=== PATIENT | female | born 1950 | race Caucasian/White ===

== ENCOUNTER 2018-04-10 09:42 | Emergency (ER) | payer MEDICARE ==
[~2018-04-10] VITALS: Ht 170.2 cm; Wt 70.0 kg
[2018-04-10 09:57] VITALS: BP 130/68
[2018-04-10 10:35] LABS: BASOPHILS # (AUTO) 0.04 x10^3/uL (0-0.1); BASOPHILS % (AUTO) 0 % (0-1); EOSINOPHILS # (AUTO) 0.21 x10^3/uL (0-0.4); EOSINOPHILS % (AUTO) 2 % (1-7); LYMPHOCYTES # (AUTO) 2.14 x10^3/uL (1-3.4); LYMPHOCYTES % (AUTO) 18 % (22-44); MD NO; MEAN CORPUSCULAR HEMOGLOBIN 27.8 pg (27.0-34.8); MEAN CORPUSCULAR HGB CONC 33.4 g/dL (32.4-35.8); MEAN CORPUSCULAR VOLUME 83.4 fL (80-100); MEAN PLATELET VOLUME 7.4 fL (7.4-10.4); MONOCYTES # (AUTO) 0.96 x10^3/uL (0.2-0.8); MONOCYTES % (AUTO) 8 % (2-9); NEUTROPHILS % (AUTO) 73 % (42-75); PLATELET COUNT 355 x10^3/uL (130-400); RED BLOOD COUNT 5.47 x10^6/uL (3.82-5.3)
[2018-04-10] MEDS ORDERED: KETOROLAC 30 MG/1 ML ONE (10:41)
[2018-04-10] MEDS ORDERED: KETOROLAC 30 MG/1 ML IM ONE (11:00)
== END 2018-04-10 12:04 | disposition home or self-care (01) ==
LOC: ED 11:57
DX: M79.671 Pain in right foot (principal); M25.571 Pain in right ankle and joints of right foot; E11.9 Type 2 diabetes mellitus without complications; J44.9 Chronic obstructive pulmonary disease, unspecified; I50.9 Heart failure, unspecified; F17.200 Nicotine dependence, unspecified, uncomplicated; M79.89 Other specified soft tissue disorders; Z95.0 Presence of cardiac pacemaker
CPT/HCPCS: 36415; 73610; 73630; 84550; 85025; 96372; 99285; J1885

== ENCOUNTER 2018-12-06 23:46 | Inpatient (IN) | payer MEDICARE ==
[~2018-12-06] VITALS: Ht 175.3 cm; Wt 62.9 kg
--- NOTE | 2018-12-07 00:09 | NUR ---
PT IN GOWN IN [facility]. AT . PT EDUCATED ON ER PROCESS AND VERBALIZES UNDERSTANDING. CALL LIGHT IS WITHIN REACH AT THIS TIME. 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 VSS. AWAITING ERP AND NEW ORDERS AT THIS TIME.
[2018-12-07] MEDS ORDERED: SODIUM CHLORIDE FLUSH 10ML SYR IVF ONE (00:30)
[2018-12-07 00:34] LABS: BASOPHILS # (AUTO) 0.12 x10^3/uL (0-0.1); BASOPHILS % (AUTO) 1 % (0-1); EOSINOPHILS # (AUTO) 0.22 x10^3/uL (0-0.4); EOSINOPHILS % (AUTO) 2 % (1-7); LYMPHOCYTES # (AUTO) 2.53 x10^3/uL (1-3.4); LYMPHOCYTES % (AUTO) 18 % (22-44); MD NO; MEAN CORPUSCULAR HEMOGLOBIN 28.4 pg (27.0-34.8); MEAN CORPUSCULAR HGB CONC 33.6 g/dL (32.4-35.8); MEAN CORPUSCULAR VOLUME 84.7 fL (80-100); MONOCYTES % (AUTO) 9 % (2-9); NEUTROPHILS # (AUTO) 9.85 x10^3/uL (1.8-6.8); NEUTROPHILS % (AUTO) 71 % (42-75); PLATELET COUNT 328 x10^3/uL (130-400); RED BLOOD COUNT 5.36 x10^6/uL (3.82-5.3); RED CELL DISTRIBUTION WIDTH 18.1 % (9.6-15.2)
--- NOTE | 2018-12-07 00:38 | NUR ---
Called [facility] and requested pacemaker interogation. Rep to come to ED to interogate
--- NOTE | 2018-12-07 00:42 | NUR ---
PT PLACED ON 3L O2 PER N/C FOR DESAT TO 83% ON RA
[2018-12-07 00:44] LABS: INTERNATIONAL NORMALIZED RATIO 0.94 (0.93-1.1); PROTHROMBIN TIME 9.9 Seconds (9.6-11.5)
[2018-12-07 00:45] LABS: ALANINE AMINOTRANSFERASE 29 U/L (12-78); ALBUMIN 3.5 g/dL (3.4-5.0); ANION GAP 6 mmol/L (5-15); CALCIUM 8.9 mg/dL (8.5-10.1); CHLORIDE 96 mmol/L (98-107); CREATININE 1.15 mg/dL (0.55-1.02)
[2018-12-07 00:50] LABS: ALKALINE PHOSPHATASE 82 U/L (45-117); BILIRUBIN,TOTAL 0.2 mg/dL (0.2-1.0); T4 (THYROXINE) 12.4 mcg/dL (4.8-13.9); TOTAL PROTEIN 7.1 g/dL (6.4-8.2); TROPONIN I 0.101 ng/mL (0.000-0.045)
[2018-12-07] MEDS ORDERED: AMIODARONE 900 MG in DEXTROSE 5% 482 ML IV PRN ×2 (01:15→04:30)
[2018-12-07] MEDS ORDERED: AMIODARONE 50 MG/ML, 3ML IVPush ONE (01:30)
[2018-12-07] MEDS ORDERED: FILTER 0.22 MICRON IV ONE (01:30)
[2018-12-07] MEDS ORDERED: ASPIRIN 325 MG TABLET PO ONE (01:30)
[2018-12-07] MEDS ORDERED: AMIODARONE 50 MG/ML, 3ML ONE (01:31)
[2018-12-07] MEDS ORDERED: ASPIRIN 325 MG TABLET ONE (01:37)
--- NOTE | 2018-12-07 01:41 | NUR ---
PT VSS AND UPDATED IN EMR. PT MEDICATED PER MAR. PT EDUCATED ON UPDATED POC AND VERBALIZES UNDERSTANDING.
--- NOTE | 2018-12-07 01:49 | NUR ---
Maki medina in [facility] - 12/07/18 at 0150 by HANNAH REPORT CALLED TO SHALA GREEN FOR ROOM 520-1
--- NOTE | 2018-12-07 01:50 | NUR ---
REPORT CALLED TO SHALA GREEN FOR ROOM 520-1
--- NOTE | 2018-12-07 01:56 | NUR ---
PT AMBULATES TO RESTROOM WITH STEADY GAIT AND STANDBY ASSIST. PT BACK IN [facility] AT THIS TIME AND MEDICATED PER OCT.
[2018-12-07 02:55] VITALS: BP 110/64
[2018-12-07 03:11] VITALS: BP 110/64
[2018-12-07] MEDS ORDERED: CARV12.52 PO (03:11)
[2018-12-07] MEDS ORDERED: DAPA5TAB PO (03:11)
[2018-12-07] MEDS ORDERED: DEXL60CA2 PO (03:11)
[2018-12-07] MEDS ORDERED: SPIR25TA5 PO (03:11)
[2018-12-07] MEDS ORDERED: ONDA4TAB13 SL (03:11)
[2018-12-07] MEDS ORDERED: ASPI81TA45 PO (03:11)
[2018-12-07] MEDS ORDERED: POTA10CA PO (03:11)
[2018-12-07] MEDS ORDERED: LEVO112T4 PO (03:11)
[2018-12-07] MEDS ORDERED: FLUT1BLS3 INH (03:11)
[2018-12-07] MEDS ORDERED: SITA25TA PO (03:11)
[2018-12-07] MEDS ORDERED: METH10TA2 PO (03:11)
[2018-12-07] MEDS ORDERED: FURO20TA3 PO (03:11)
[2018-12-07] MEDS ORDERED: AZEL205.2 NAS (03:11)
[2018-12-07] MEDS ORDERED: LISI5TAB7 PO (03:11)
[2018-12-07] MEDS ORDERED: LACTATED RINGERS 1,000 ML IV SCH (04:30)
[2018-12-07] MEDS ORDERED: morphine SULFATE 10 MG/ML, 1ML IVPush PRN (04:30)
[2018-12-07] MEDS ORDERED: ENALAPRILAT 1.25 MG/ML, 2ML IVPush PRN (04:30)
[2018-12-07] MEDS ORDERED: PROMETHAZINE 25 MG/ML, 1ML IM PRN (04:30)
[2018-12-07] MEDS ORDERED: NITROGLYCERIN 0.4 MG BOTTLE (25 TABS) SL PRN (04:30)
[2018-12-07] MEDS ORDERED: ACETAMINOPHEN 325 MG TABLET PO PRN (04:30)
[2018-12-07] MEDS ORDERED: MAGNESIUM SULFATE 1 GM in SODIUM CHLORIDE 0.9% 50 ML IV ONE (04:30)
[2018-12-07] MEDS ORDERED: DEXTROSE 4 GM TAB.CHEW PO PRN (05:00)
[2018-12-07] MEDS ORDERED: GLUCAGON 1 MG IM PRN (05:00)
[2018-12-07] MEDS ORDERED: DEXTROSE 50%, 50ML SYRINGE IVPush PRN (05:00)
[2018-12-07] MEDS ORDERED: FILTER 0.22 MICRON IV PRN (05:00)
[2018-12-07] MEDS: HEPARIN 5,000 UNITS/ML, 1ML SQ SCH ×3 (05:06→21:18)
[2018-12-07] MEDS: PANTOPROZOLE 40MG TABLET PO SCH (05:07)
[2018-12-07] MEDS: ASPIRIN 325 MG TABLET EC PO SCH (05:07)
[2018-12-07 06:55] VITALS: BP 102/64
[2018-12-07 07:13] LABS: BASOPHILS # (AUTO) 0.04 x10^3/uL (0-0.1); BASOPHILS % (AUTO) 0 % (0-1); EOSINOPHILS # (AUTO) 0.21 x10^3/uL (0-0.4); EOSINOPHILS % (AUTO) 2 % (1-7); LYMPHOCYTES # (AUTO) 2.09 x10^3/uL (1-3.4); LYMPHOCYTES % (AUTO) 19 % (22-44); MD NO; MEAN CORPUSCULAR HEMOGLOBIN 27.9 pg (27.0-34.8); MEAN CORPUSCULAR HGB CONC 32.8 g/dL (32.4-35.8); MEAN CORPUSCULAR VOLUME 85.1 fL (80-100); MONOCYTES # (AUTO) 1.02 x10^3/uL (0.2-0.8); MONOCYTES % (AUTO) 9 % (2-9); NEUTROPHILS # (AUTO) 7.69 x10^3/uL (1.8-6.8); NEUTROPHILS % (AUTO) 70 % (42-75); PLATELET COUNT 288 x10^3/uL (130-400); RED BLOOD COUNT 5.21 x10^6/uL (3.82-5.3); RED CELL DISTRIBUTION WIDTH 17.7 % (9.6-15.2)
[2018-12-07 07:16] LABS: ANION GAP 6 mmol/L (5-15); CHLORIDE 98 mmol/L (98-107)
[2018-12-07 07:22] LABS: CHOL/HDL RATIO 3.6; CHOLESTEROL, TOTAL 189 mg/dL (140-239); CREATININE 0.84 mg/dL (0.55-1.02); FREE T4 (FREE THYROXINE) 1.21 ng/dL (0.76-1.46); HDL CHOL % 28 % (28-40); HDL CHOLESTEROL (DIRECT) 53 mg/dL (40-60); LDL CHOLESTEROL,CALCULATED 98 mg/dL (54-169); LDL/HDL RATIO 1.8 (0.5-3.0); TRIGLYCERIDES 188 mg/dL (50-200); TROPONIN I 0.092 ng/mL (0.000-0.045); VLDL CHOLESTEROL 38 mg/dL (0-25)
[2018-12-07] MEDS ORDERED: LEVOTHYROXINE 112 MCG TABLET PO SCH (07:30)
[2018-12-07] MEDS: INSULIN LISPRO 100 UNITS/ML, PEN SQ-INSULIN SCH ×4 (08:15→21:25)
[2018-12-07 08:32] LABS: HEMOGLOBIN A1C 6.9 % (4.2-6.3)
[2018-12-07] MEDS ORDERED: POLYETHYLENE GLYCOL 17 GM PACKET PO ONE (09:00)
[2018-12-07] MEDS: LEVOTHYROXINE 112 MCG TABLET PO SCH (10:22)
[2018-12-07] MEDS: FUROSEMIDE 20 MG TABLET PO SCH (10:22)
[2018-12-07] MEDS: SPIRONOLACTONE 25 MG TABLET PO SCH ×2 (10:22→21:19)
[2018-12-07] MEDS: POTASSIUM CHLORIDE 10 MEQ TABLET.ER PO SCH (10:22)
[2018-12-07] MEDS: METHADONE 10 MG TABLET PO SCH ×3 (10:22→21:20)
[2018-12-07] MEDS: SODIUM CHLORIDE FLUSH 10ML SYR IVF SCH ×2 (10:23→21:18)
[2018-12-07] MEDS: CARVEDILOL 12.5 MG TABLET PO SCH ×2 (10:23→21:19)
[2018-12-07] MEDS: LISINOPRIL 5 MG TABLET PO SCH (10:24)
[2018-12-07] MEDS: AMIODARONE 200 MG TABLET PO SCH ×2 (10:25→21:19)
[2018-12-07] MEDS ORDERED: ALBUTEROL/IPRATROPIUM 2.5MG/0.5MG, 3 ML ONE (11:07)
[2018-12-07 11:50] LABS: TROPONIN I 0.072 ng/mL (0.000-0.045)
[2018-12-07] MEDS: methylPREDNISolone SOD SUCC 125 MG/2 ML IVPush SCH ×2 (12:26→18:01)
[2018-12-07 13:16] LABS: HCT (SEDRATE) 43.7 % (34.6-47.8)
[2018-12-07 13:18] VITALS: BP 108/68
[2018-12-07 20:05] VITALS: BP 105/63
[2018-12-07] MEDS: ALBUTEROL/IPRATROPIUM 2.5MG/0.5MG, 3 ML NPPB SCH (20:37)
[2018-12-08] MEDS: methylPREDNISolone SOD SUCC 125 MG/2 ML IVPush SCH ×3 (00:05→12:22)
[2018-12-08 01:50] VITALS: BP 127/67
[2018-12-08] MEDS: HEPARIN 5,000 UNITS/ML, 1ML SQ SCH ×2 (05:26→12:52)
[2018-12-08] MEDS: PANTOPROZOLE 40MG TABLET PO SCH (05:27)
[2018-12-08] MEDS: ASPIRIN 325 MG TABLET EC PO SCH (05:27)
[2018-12-08] MEDS: LEVOTHYROXINE 112 MCG TABLET PO SCH (05:30)
[2018-12-08] MEDS: METHADONE 10 MG TABLET PO SCH (08:01)
[2018-12-08] MEDS: SPIRONOLACTONE 25 MG TABLET PO SCH (08:02)
[2018-12-08] MEDS: CARVEDILOL 12.5 MG TABLET PO SCH (08:02)
[2018-12-08] MEDS: FUROSEMIDE 20 MG TABLET PO SCH (08:02)
[2018-12-08] MEDS: POTASSIUM CHLORIDE 10 MEQ TABLET.ER PO SCH (08:02)
[2018-12-08] MEDS: AMIODARONE 200 MG TABLET PO SCH (08:02)
[2018-12-08] MEDS: LISINOPRIL 5 MG TABLET PO SCH (08:02)
[2018-12-08] MEDS: INSULIN LISPRO 100 UNITS/ML, PEN SQ-INSULIN SCH ×2 (08:05→11:35)
[2018-12-08] MEDS: SODIUM CHLORIDE FLUSH 10ML SYR IVF SCH (08:05)
[2018-12-08 08:09] VITALS: BP 124/73
[2018-12-08] MEDS: ALBUTEROL/IPRATROPIUM 2.5MG/0.5MG, 3 ML NPPB SCH (09:00)
[2018-12-08] MEDS ORDERED: AMIO200T42 PO (11:59)
[2018-12-08] MEDS ORDERED: PRED5TAB PO (11:59)
[2018-12-08] MEDS ORDERED: IPRA3AMP30 NPPB (11:59)
[2018-12-08 13:59] VITALS: BP 120/75
== END 2018-12-08 14:25 | disposition home or self-care (01) | DRG 189 ==
LOC: ED 12-07 00:41 → EDIP 12-07 01:20 → 5SO 12-07 02:31 → DCLOUNGE 12-08 14:18
PROVIDERS: ADMIT Family Medicine; ATTEND Family Medicine
PROC: 4B02XTZ Measurement of Cardiac Defibrillator, External Approach (ICD-10-PCS; principal; 2018-12-07)
DX: J96.21 Acute and chronic respiratory failure with hypoxia (principal); I47.2 Ventricular tachycardia; J44.1 Chronic obstructive pulmonary disease with (acute) exacerbation; I42.0 Dilated cardiomyopathy; F17.210 Nicotine dependence, cigarettes, uncomplicated; E11.9 Type 2 diabetes mellitus without complications; E83.42 Hypomagnesemia; I34.0 Nonrheumatic mitral (valve) insufficiency; K59.09 Other constipation; I50.9 Heart failure, unspecified; Z99.81 Dependence on supplemental oxygen; Z95.810 Presence of automatic (implantable) cardiac defibrillator; Z86.711 Personal history of pulmonary embolism; Z91.19 Patient's noncompliance with other medical treatment and regimen
CPT/HCPCS: 36415; 71045; 80048; 80053; 80061; 82962; 83036; 83735; 83880; 84100; 84436; 84439; 84443; 84484; 85025; 85610; 85651; 85730; 86140; 93005; 93306; 94640; 96365; 96375; 99291; G0378; J1644; J3475; J0282; J1815; J2930; J7060; J7120

== ENCOUNTER 2019-01-11 17:48 | Emergency (ER) | payer MEDICARE ==
[~2019-01-11] VITALS: Ht 175.3 cm; Wt 66.4 kg
[~2019-01-11 17:48] MED LIST: AMIO200T42 PO; ASPI81TA45 PO; AZEL205.2 NAS; CARV12.52 PO; DAPA5TAB PO; DEXL60CA2 PO; FLUT1BLS3 INH; FURO20TA3 PO; IPRA3AMP30 NPPB; LEVO112T4 PO; LISI5TAB7 PO; METH10TA2 PO; ONDA4TAB13 SL; POTA10CA PO; PRED5TAB PO; SITA25TA PO; SPIR25TA5 PO
[2019-01-11] MEDS ORDERED: SODIUM CHLORIDE FLUSH 10ML SYR IVF ONE (18:00)
--- NOTE | 2019-01-11 18:35 | NUR ---
PT BP 78/39 C/O FEELING "DIZZY ALL DAY" PT IS ALERT AND FRANCIS W/O DIFFICULTY. DR LOMELI AT BEDSIDE.
[2019-01-11 18:39] LABS: BASOPHILS # (AUTO) 0.05 x10^3/uL (0-0.1); BASOPHILS % (AUTO) 1 % (0-1); EOSINOPHILS # (AUTO) 0.09 x10^3/uL (0-0.4); EOSINOPHILS % (AUTO) 1 % (1-7); LYMPHOCYTES # (AUTO) 1.63 x10^3/uL (1-3.4); LYMPHOCYTES % (AUTO) 18 % (22-44); MD NO; MEAN CORPUSCULAR HEMOGLOBIN 28.6 pg (27.0-34.8); MEAN CORPUSCULAR HGB CONC 32.6 g/dL (32.4-35.8); MEAN CORPUSCULAR VOLUME 87.7 fL (80-100); MONOCYTES # (AUTO) 0.89 x10^3/uL (0.2-0.8); MONOCYTES % (AUTO) 10 % (2-9); NEUTROPHILS # (AUTO) 6.55 x10^3/uL (1.8-6.8); NEUTROPHILS % (AUTO) 71 % (42-75); PLATELET COUNT 410 x10^3/uL (130-400); RED BLOOD COUNT 4.85 x10^6/uL (3.82-5.3); RED CELL DISTRIBUTION WIDTH 17.7 % (9.6-15.2)
[2019-01-11 18:50] LABS: ALANINE AMINOTRANSFERASE 33 U/L (12-78); ALBUMIN 3.5 g/dL (3.4-5.0); ANION GAP 8 mmol/L (5-15); CALCIUM 8.7 mg/dL (8.5-10.1); CHLORIDE 96 mmol/L (98-107); CREATININE 1.19 mg/dL (0.55-1.02)
[2019-01-11 18:52] LABS: ALKALINE PHOSPHATASE 99 U/L (45-117); BILIRUBIN,TOTAL 0.4 mg/dL (0.2-1.0); TOTAL PROTEIN 6.9 g/dL (6.4-8.2)
[2019-01-11] MEDS ORDERED: CLINDAMYCIN PMX 600MG/50ML 50 ML IV ONE (19:00)
[2019-01-11] MEDS ORDERED: SODIUM CHLORIDE 0.9% 1,000ML IVBOLUS ONE (19:00)
--- NOTE | 2019-01-11 19:04 | NUR ---
Pt report from suhail underwood. This rn to assume care of pt. Pt responding to fluid bolus. Approximately 200 ml in so far.
[2019-01-11 19:06] LABS: TROPONIN I < 0.015 ng/mL (0.000-0.045)
[2019-01-11] MEDS ORDERED: CLINDAMYCIN PMX 600MG/50ML 50 ML ONE (19:20)
--- NOTE | 2019-01-11 19:24 | NUR ---
Md at bedside at this time. States to cancel abx and not admin. non-admin per md order.
[2019-01-11] MEDS ORDERED: GABAPENTIN 300 MG CAPSULE ONE (19:27)
[2019-01-11] MEDS ORDERED: GABAPENTIN 300 MG CAPSULE PO ONE (19:30)
[2019-01-11] MEDS ORDERED: ALBUTEROL/IPRATROPIUM 2.5MG/0.5MG, 3 ML NPPB ONE (19:30)
[2019-01-11] MEDS ORDERED: ALBUTEROL/IPRATROPIUM 2.5MG/0.5MG, 3 ML ONE (19:39)
[2019-01-11 19:51] VITALS: BP 106/46
--- NOTE | 2019-01-11 19:56 | NUR ---
Pt road tested per md order. Pt amb w/ steady gait w/ from home walker and maitained spo2.
--- NOTE | 2019-01-12 19:53 | NUR ---
LAB CALLED WITH POSITIVE BLOOD CULTURE X1 AEROBIC GRAM +COCCI IN CLUSTERS.
== END 2019-01-11 20:32 | disposition home or self-care (01) ==
LOC: ED 19:30
DX: M79.671 Pain in right foot (principal); M79.672 Pain in left foot; M79.662 Pain in left lower leg; M79.661 Pain in right lower leg; E86.0 Dehydration; J44.1 Chronic obstructive pulmonary disease with (acute) exacerbation; I10 Essential (primary) hypertension; E11.9 Type 2 diabetes mellitus without complications; F17.200 Nicotine dependence, unspecified, uncomplicated
CPT/HCPCS: 36415; 71045; 80053; 83605; 83880; 84484; 85025; 87040; 93005; 94640; 96360; 99284; J7030; J7512; J7620

== ENCOUNTER 2019-01-15 08:12 | Inpatient (IN) | payer MEDICARE ==
[~2019-01-15] VITALS: Ht 175.3 cm; Wt 62.7 kg
--- NOTE | 2019-01-15 08:52 | NUR ---
TO ROOM FROM LOBBY
--- NOTE | 2019-01-15 08:52 | NUR ---
LAB DRAWING BLOOD IN LOBBY WHEN CALLING TO ROOM PATIENT.
--- NOTE | 2019-01-15 09:05 | NUR ---
PATIENT AMB WITH STEADY GAIT TO ROOM 35 AT THIS TIME, ASSUMED CARE OF PATIENT. PRESENTS TO ED TODAY FOR CALL BACK FOR POSITIVE BLOOD CULTURES, PATIENT SEEN LAST FRIDAY FOR BILAT LOWER EXT SWELLING, NONE NOTED AT THIS TIME. BILAT HAND/FEET ERYTHEMA WITH WOUNDS TO BILAT LOWER FEET NOTED. HX OF RAYNAUDS. REYNA, AWAITING MD ORDERS, CALL LIGHT WITHIN REACH. WARM BLANKET PROVIDED. Addendum: 01/15/19 at 0918 by NICCI HX OF DM.
--- NOTE | 2019-01-15 09:15 | NUR ---
LAB AT BEDSIDE, UNABLE TO GET BOTH SETS OF CULTURES IN LOBBY, ATTEMPTING 2ND BLOOD CULTURE AT THIS TIME. MD AT BEDSIDE, STATES PATIENT WILL NEED TO BE ADMITTED FOR IV ABX. PATIENT STATING "I NEED TO GO HOME AND TAKE CARE OF A FEW THINGS FIRST FOR AN HOUR BEFORE I CAN AND I PROMISE I WILL COME BACK". AWAITING FURTHER ORDERS FROM MD, WILL SPEAK WITH PATIENT REGARDING NEED TO GO HOME/BEING ADMITTED AFTER LAB IS DONE DRAWING CULTURES.
[2019-01-15 10:08] LABS: MEAN CORPUSCULAR HEMOGLOBIN 28.5 pg (27.0-34.8); MEAN CORPUSCULAR HGB CONC 32.2 g/dL (32.4-35.8); MEAN CORPUSCULAR VOLUME 88.5 fL (80-100); MEAN PLATELET VOLUME 7.3 fL (7.4-10.4); PLATELET COUNT 389 x10^3/uL (130-400); RED BLOOD COUNT 5.16 x10^6/uL (3.82-5.3); RED CELL DISTRIBUTION WIDTH 18.2 % (9.6-15.2)
[2019-01-15 10:17] LABS: ALANINE AMINOTRANSFERASE 45 U/L (12-78); ALBUMIN 3.7 g/dL (3.4-5.0); ANION GAP 6 mmol/L (5-15); CALCIUM 9.1 mg/dL (8.5-10.1); CHLORIDE 96 mmol/L (98-107); CREATININE 0.96 mg/dL (0.55-1.02)
[2019-01-15 10:19] LABS: ALKALINE PHOSPHATASE 94 U/L (45-117); BILIRUBIN,TOTAL 0.3 mg/dL (0.2-1.0); TOTAL PROTEIN 7.4 g/dL (6.4-8.2)
[2019-01-15 10:39] LABS: BASOPHILS # (AUTO) 0.04 x10^3/uL (0-0.1); BASOPHILS % (AUTO) 0 % (0-1); EOSINOPHILS # (AUTO) 0.05 x10^3/uL (0-0.4); EOSINOPHILS % (AUTO) 0 % (1-7); LYMPHOCYTES % (AUTO) 23 % (22-44); MD SCAN; MONOCYTES # (AUTO) 1.56 x10^3/uL (0.2-0.8); MONOCYTES % (AUTO) 13 % (2-9); NEUTROPHILS # (AUTO) 7.59 x10^3/uL (1.8-6.8); NEUTROPHILS % (AUTO) 63 % (42-75)
--- NOTE | 2019-01-15 10:45 | NUR ---
LAB AT BEDSIDE FOR LACTIC, VS UPDATED IN CHART. PATIENT SITTING IN [facility].
--- NOTE | 2019-01-15 11:21 | NUR ---
Maki medina in [facility] - 01/15/19 at 1207 by NICCI LACTIC PENDING.
--- NOTE | 2019-01-15 11:21 | NUR ---
Maki medina in [facility] - 01/15/19 at 1121 by DARBY LACTIC PENDING.
[2019-01-15] MEDS ORDERED: CEFTRIAXONE PMX 1GM/50ML 50 ML ONE (12:28)
[2019-01-15] MEDS ORDERED: SODIUM CHLORIDE FLUSH 10ML SYR IVF PRN (12:30)
[2019-01-15] MEDS ORDERED: CEFTRIAXONE PMX 1GM/50ML 50 ML IVPB ONE (12:30)
--- NOTE | 2019-01-15 13:01 | NUR ---
REPORT TO NORMA ELENA.
--- NOTE | 2019-01-15 13:14 | NUR ---
PATIENT TRANSFERRED/ADMITTED TO HOSPITAL BED.
[2019-01-15 13:53] VITALS: BP 100/59
[2019-01-15] MEDS ORDERED: ONDANSETRON 2MG/ML, 2ML IVPush PRN (14:00)
[2019-01-15] MEDS ORDERED: LABETALOL 5MG/ML, 20ML IVPush PRN (14:00)
[2019-01-15] MEDS ORDERED: ONDANSETRON ODT 4 MG PO PRN (14:00)
[2019-01-15] MEDS ORDERED: VANCOMYCIN PER PHARMACY MC PRN (14:00)
[2019-01-15] MEDS ORDERED: POLYETHYLENE GLYCOL 17 GM PACKET PO PRN (14:00)
[2019-01-15] MEDS ORDERED: PHARMACOKINETIC MONITORING MC PRN (14:30)
[2019-01-15] MEDS ORDERED: PHARMACOKINETIC CONSULTATION MC ONE (14:30)
[2019-01-15 14:41] LABS: FREE T4 (FREE THYROXINE) 1.51 ng/dL (0.76-1.46)
[2019-01-15 15:45] LABS: HCT (SEDRATE) 43.2 % (34.6-47.8)
[2019-01-15] MEDS ORDERED: OMNIPAQUE 350 MG/ML, 100ML BOTTLE ONE (16:15)
[2019-01-15] MEDS: ENOXAPARIN 40 MG/0.4 ML SQ SCH (16:53)
[2019-01-15] MEDS: VANCOMYCIN 1,400 MG in SODIUM CHLORIDE 0.9% 250 ML IV SCH (16:53)
[2019-01-15] MEDS ORDERED: DEXTROSE 4 GM TAB.CHEW PO PRN (17:30)
[2019-01-15] MEDS ORDERED: GLUCAGON 1 MG IM PRN (17:30)
[2019-01-15] MEDS ORDERED: DEXTROSE 50%, 50ML SYRINGE IVPush PRN (17:30)
[2019-01-15 17:52] LABS: HEMOGLOBIN A1C 7.6 % (4.2-6.3)
[2019-01-15 18:51] VITALS: BP 120/67
[2019-01-15] MEDS: INSULIN LISPRO 100 UNITS/ML, PEN SQ-INSULIN SCH (21:00)
[2019-01-15] MEDS: ALBUTEROL/IPRATROPIUM 2.5MG/0.5MG, 3 ML NPPB SCH (21:00)
[2019-01-15] MEDS: AZELASTINE HCL NAS SCH (21:00)
[2019-01-15] MEDS ORDERED: AMIODARONE 200 MG TABLET PO SCH (21:00)
[2019-01-15] MEDS: SODIUM CHLORIDE FLUSH 10ML SYR IVF SCH (21:00)
[2019-01-15] MEDS: CARVEDILOL 12.5 MG TABLET PO SCH (21:10)
[2019-01-15] MEDS: SPIRONOLACTONE 25 MG TABLET PO SCH (21:10)
[2019-01-15] MEDS: METHADONE 10 MG TABLET PO SCH (21:10)
[2019-01-15] MEDS: AMIODARONE 200 MG TABLET PO SCH (21:11)
[2019-01-16 00:34] VITALS: BP 90/50
[2019-01-16 05:31] LABS: BASOPHILS # (AUTO) 0.04 x10^3/uL (0-0.1); BASOPHILS % (AUTO) 1 % (0-1); EOSINOPHILS # (AUTO) 0.08 x10^3/uL (0-0.4); EOSINOPHILS % (AUTO) 1 % (1-7); LYMPHOCYTES # (AUTO) 2.13 x10^3/uL (1-3.4); LYMPHOCYTES % (AUTO) 26 % (22-44); MD NO; MEAN CORPUSCULAR HEMOGLOBIN 28.1 pg (27.0-34.8); MEAN CORPUSCULAR HGB CONC 31.9 g/dL (32.4-35.8); MEAN CORPUSCULAR VOLUME 88.1 fL (80-100); MONOCYTES # (AUTO) 1.01 x10^3/uL (0.2-0.8); MONOCYTES % (AUTO) 12 % (2-9); NEUTROPHILS # (AUTO) 5.01 x10^3/uL (1.8-6.8); NEUTROPHILS % (AUTO) 61 % (42-75); PLATELET COUNT 362 x10^3/uL (130-400); RED BLOOD COUNT 5.03 x10^6/uL (3.82-5.3); RED CELL DISTRIBUTION WIDTH 17.8 % (9.6-15.2)
[2019-01-16 05:38] LABS: ALBUMIN 3.3 g/dL (3.4-5.0); ANION GAP 4 mmol/L (5-15); CALCIUM 8.8 mg/dL (8.5-10.1); CHLORIDE 98 mmol/L (98-107)
[2019-01-16 05:52] LABS: ALANINE AMINOTRANSFERASE 38 U/L (12-78); ALKALINE PHOSPHATASE 91 U/L (45-117); BILIRUBIN,TOTAL 0.7 mg/dL (0.2-1.0); CREATININE 0.85 mg/dL (0.55-1.02); TOTAL PROTEIN 6.8 g/dL (6.4-8.2)
[2019-01-16] MEDS: ALBUTEROL/IPRATROPIUM 2.5MG/0.5MG, 3 ML NPPB SCH (06:00)
[2019-01-16] MEDS: LEVOTHYROXINE 112 MCG TABLET PO SCH (06:37)
[2019-01-16 07:12] VITALS: BP 101/59
[2019-01-16] MEDS: INSULIN LISPRO 100 UNITS/ML, PEN SQ-INSULIN SCH ×4 (08:17→21:49)
[2019-01-16] MEDS: BUDESONIDE 0.5 MG/2 ML INHA INH SCH ×2 (09:00→19:51)
[2019-01-16] MEDS: Fluticasone/Umeclidin/Vilanter (Trelegy Ellipta 100-62.5-25 INH SCH (09:44)
[2019-01-16] MEDS: AZELASTINE HCL NAS SCH ×2 (09:45→21:00)
[2019-01-16] MEDS: SODIUM CHLORIDE FLUSH 10ML SYR IVF SCH ×2 (09:45→21:00)
[2019-01-16] MEDS: AMIODARONE 200 MG TABLET PO SCH ×3 (09:46→21:00)
[2019-01-16] MEDS: METHADONE 10 MG TABLET PO SCH ×3 (09:47→22:04)
[2019-01-16] MEDS: SENNA/DOCUSATE TABLET PO SCH (09:47)
[2019-01-16] MEDS: ASPIRIN 81 MG TABLET EC PO SCH (09:47)
[2019-01-16] MEDS: CARVEDILOL 12.5 MG TABLET PO SCH ×3 (09:47→21:00)
[2019-01-16] MEDS: LISINOPRIL 5 MG TABLET PO SCH (09:47)
[2019-01-16] MEDS: FUROSEMIDE 20 MG TABLET PO SCH (09:49)
[2019-01-16] MEDS: SPIRONOLACTONE 25 MG TABLET PO SCH ×3 (09:50→21:00)
[2019-01-16] MEDS ORDERED: ALBUTEROL/IPRATROPIUM 2.5MG/0.5MG, 3 ML NPPB PRN (10:30)
[2019-01-16 12:43] VITALS: BP 90/51
[2019-01-16] MEDS: CEFTRIAXONE PMX 1GM/50ML 50 ML IV SCH (14:07)
[2019-01-16] MEDS: ENOXAPARIN 40 MG/0.4 ML SQ SCH (14:07)
[2019-01-16] MEDS: VANCOMYCIN 1,400 MG in SODIUM CHLORIDE 0.9% 250 ML IV SCH (16:20)
[2019-01-16 18:44] VITALS: BP 91/53
[2019-01-16 22:00] VITALS: BP 113/65
[2019-01-17 02:47] VITALS: BP 91/57
[2019-01-17 04:46] LABS: BASOPHILS # (AUTO) 0.05 x10^3/uL (0-0.1); BASOPHILS % (AUTO) 1 % (0-1); EOSINOPHILS # (AUTO) 0.11 x10^3/uL (0-0.4); EOSINOPHILS % (AUTO) 1 % (1-7); LYMPHOCYTES # (AUTO) 1.97 x10^3/uL (1-3.4); LYMPHOCYTES % (AUTO) 24 % (22-44); MD NO; MEAN CORPUSCULAR HEMOGLOBIN 28.4 pg (27.0-34.8); MEAN CORPUSCULAR HGB CONC 32.4 g/dL (32.4-35.8); MEAN CORPUSCULAR VOLUME 87.7 fL (80-100); MEAN PLATELET VOLUME 7.1 fL (7.4-10.4); MONOCYTES # (AUTO) 0.92 x10^3/uL (0.2-0.8); MONOCYTES % (AUTO) 11 % (2-9); NEUTROPHILS % (AUTO) 63 % (42-75); PLATELET COUNT 333 x10^3/uL (130-400)
[2019-01-17 04:58] LABS: ALANINE AMINOTRANSFERASE 35 U/L (12-78); ALBUMIN 3.1 g/dL (3.4-5.0); ANION GAP 5 mmol/L (5-15); CALCIUM 8.9 mg/dL (8.5-10.1); CHLORIDE 100 mmol/L (98-107); CREATININE 0.76 mg/dL (0.55-1.02)
[2019-01-17 05:00] LABS: ALKALINE PHOSPHATASE 92 U/L (45-117); BILIRUBIN,TOTAL 0.3 mg/dL (0.2-1.0); TOTAL PROTEIN 6.6 g/dL (6.4-8.2)
[2019-01-17] MEDS: LEVOTHYROXINE 112 MCG TABLET PO SCH (06:13)
[2019-01-17] MEDS: INSULIN LISPRO 100 UNITS/ML, PEN SQ-INSULIN SCH ×4 (07:00→20:25)
[2019-01-17] MEDS: FUROSEMIDE 20 MG TABLET PO SCH (09:00)
[2019-01-17] MEDS: CARVEDILOL 12.5 MG TABLET PO SCH ×3 (09:00→22:20)
[2019-01-17] MEDS: AZELASTINE HCL NAS SCH ×2 (09:00→20:30)
[2019-01-17] MEDS: Fluticasone/Umeclidin/Vilanter (Trelegy Ellipta 100-62.5-25 INH SCH (09:00)
[2019-01-17] MEDS: SPIRONOLACTONE 25 MG TABLET PO SCH ×2 (09:00→20:29)
[2019-01-17 09:36] VITALS: BP 90/56
[2019-01-17] MEDS: ASPIRIN 81 MG TABLET EC PO SCH (09:53)
[2019-01-17] MEDS: SENNA/DOCUSATE TABLET PO SCH (09:53)
[2019-01-17] MEDS: LISINOPRIL 5 MG TABLET PO SCH (09:54)
[2019-01-17] MEDS: AMIODARONE 200 MG TABLET PO SCH ×2 (09:54→20:29)
[2019-01-17] MEDS: METHADONE 10 MG TABLET PO SCH ×3 (09:54→20:29)
[2019-01-17] MEDS: SODIUM CHLORIDE FLUSH 10ML SYR IVF SCH ×2 (09:54→20:30)
[2019-01-17] MEDS: BUDESONIDE 0.5 MG/2 ML INHA INH SCH ×2 (10:20→21:00)
[2019-01-17] MEDS: ENOXAPARIN 40 MG/0.4 ML SQ SCH (14:39)
[2019-01-17] MEDS: CEFTRIAXONE PMX 1GM/50ML 50 ML IV SCH (14:39)
[2019-01-17 15:53] VITALS: BP 95/60
[2019-01-17] MEDS: VANCOMYCIN 1,400 MG in SODIUM CHLORIDE 0.9% 250 ML IV SCH (16:15)
[2019-01-17 18:59] VITALS: BP 109/68
[2019-01-17 22:19] VITALS: BP 103/55
[2019-01-17 22:20] VITALS: BP 121/71
[2019-01-18 01:02] VITALS: BP 90/53
[2019-01-18] MEDS: LEVOTHYROXINE 112 MCG TABLET PO SCH (06:51)
[2019-01-18] MEDS: BUDESONIDE 0.5 MG/2 ML INHA INH SCH ×2 (07:08→20:19)
[2019-01-18 07:55] VITALS: BP 93/56
[2019-01-18] MEDS: INSULIN LISPRO 100 UNITS/ML, PEN SQ-INSULIN SCH ×4 (08:13→21:00)
[2019-01-18 09:54] LABS: BASOPHILS # (AUTO) 0.06 x10^3/uL (0-0.1); BASOPHILS % (AUTO) 1 % (0-1); EOSINOPHILS # (AUTO) 0.12 x10^3/uL (0-0.4); EOSINOPHILS % (AUTO) 1 % (1-7); LYMPHOCYTES # (AUTO) 1.74 x10^3/uL (1-3.4); LYMPHOCYTES % (AUTO) 20 % (22-44); MD NO; MEAN CORPUSCULAR HEMOGLOBIN 28.5 pg (27.0-34.8); MEAN CORPUSCULAR HGB CONC 32.4 g/dL (32.4-35.8); MEAN CORPUSCULAR VOLUME 88.2 fL (80-100); MEAN PLATELET VOLUME 7.1 fL (7.4-10.4); MONOCYTES # (AUTO) 0.88 x10^3/uL (0.2-0.8); MONOCYTES % (AUTO) 10 % (2-9); NEUTROPHILS # (AUTO) 6.01 x10^3/uL (1.8-6.8); NEUTROPHILS % (AUTO) 68 % (42-75); PLATELET COUNT 357 x10^3/uL (130-400); RED BLOOD COUNT 4.88 x10^6/uL (3.82-5.3)
[2019-01-18 10:05] LABS: ALBUMIN 3.2 g/dL (3.4-5.0); ANION GAP 6 mmol/L (5-15); CALCIUM 8.9 mg/dL (8.5-10.1); CHLORIDE 101 mmol/L (98-107)
[2019-01-18 10:08] LABS: ALANINE AMINOTRANSFERASE 32 U/L (12-78); ALKALINE PHOSPHATASE 93 U/L (45-117); BILIRUBIN,TOTAL 0.4 mg/dL (0.2-1.0); CREATININE 0.83 mg/dL (0.55-1.02); TOTAL PROTEIN 6.8 g/dL (6.4-8.2)
[2019-01-18 10:27] VITALS: BP 120/69
[2019-01-18] MEDS: SENNA/DOCUSATE TABLET PO SCH (10:47)
[2019-01-18] MEDS: METHADONE 10 MG TABLET PO SCH ×3 (10:47→21:09)
[2019-01-18] MEDS: LISINOPRIL 5 MG TABLET PO SCH (10:47)
[2019-01-18] MEDS: SODIUM CHLORIDE FLUSH 10ML SYR IVF SCH ×2 (10:48→21:07)
[2019-01-18] MEDS: FUROSEMIDE 20 MG TABLET PO SCH (10:48)
[2019-01-18] MEDS: CARVEDILOL 12.5 MG TABLET PO SCH ×3 (10:48→21:08)
[2019-01-18] MEDS: AMIODARONE 200 MG TABLET PO SCH ×2 (10:48→21:08)
[2019-01-18] MEDS: ASPIRIN 81 MG TABLET EC PO SCH (10:48)
[2019-01-18] MEDS: SPIRONOLACTONE 25 MG TABLET PO SCH ×2 (10:50→21:09)
[2019-01-18] MEDS: AZELASTINE HCL NAS SCH ×2 (10:50→21:00)
[2019-01-18] MEDS: Fluticasone/Umeclidin/Vilanter (Trelegy Ellipta 100-62.5-25 INH SCH (10:50)
[2019-01-18 14:40] VITALS: BP 92/56
[2019-01-18] MEDS: ENOXAPARIN 40 MG/0.4 ML SQ SCH (14:54)
[2019-01-18] MEDS: CEFTRIAXONE PMX 1GM/50ML 50 ML IV SCH (14:54)
[2019-01-18] MEDS: VANCOMYCIN 1,400 MG in SODIUM CHLORIDE 0.9% 250 ML IV SCH (16:48)
[2019-01-18 18:39] VITALS: BP 92/57
[2019-01-18] MEDS: NICOTINE 7 MG/24 HR PATCH.TD24 TD SCH (23:23)
[2019-01-19 01:15] VITALS: BP 107/65
[2019-01-19] MEDS: LEVOTHYROXINE 112 MCG TABLET PO SCH (05:51)
[2019-01-19 06:02] LABS: BASOPHILS # (AUTO) 0.03 x10^3/uL (0-0.1); BASOPHILS % (AUTO) 0 % (0-1); EOSINOPHILS # (AUTO) 0.12 x10^3/uL (0-0.4); EOSINOPHILS % (AUTO) 1 % (1-7); LYMPHOCYTES # (AUTO) 2.07 x10^3/uL (1-3.4); LYMPHOCYTES % (AUTO) 23 % (22-44); MD NO; MEAN CORPUSCULAR HEMOGLOBIN 28.6 pg (27.0-34.8); MEAN CORPUSCULAR HGB CONC 32.4 g/dL (32.4-35.8); MEAN CORPUSCULAR VOLUME 88.4 fL (80-100); MEAN PLATELET VOLUME 7.3 fL (7.4-10.4); MONOCYTES # (AUTO) 1.09 x10^3/uL (0.2-0.8); MONOCYTES % (AUTO) 12 % (2-9); NEUTROPHILS # (AUTO) 5.56 x10^3/uL (1.8-6.8); NEUTROPHILS % (AUTO) 63 % (42-75); PLATELET COUNT 338 x10^3/uL (130-400); RED BLOOD COUNT 4.85 x10^6/uL (3.82-5.3); RED CELL DISTRIBUTION WIDTH 17.8 % (9.6-15.2)
[2019-01-19 06:04] LABS: ALBUMIN 3.3 g/dL (3.4-5.0); ANION GAP 6 mmol/L (5-15); CALCIUM 9.1 mg/dL (8.5-10.1); CHLORIDE 99 mmol/L (98-107)
[2019-01-19 06:11] LABS: ALANINE AMINOTRANSFERASE 31 U/L (12-78); ALKALINE PHOSPHATASE 89 U/L (45-117); BILIRUBIN,TOTAL 0.4 mg/dL (0.2-1.0)
[2019-01-19] MEDS: INSULIN LISPRO 100 UNITS/ML, PEN SQ-INSULIN SCH ×4 (07:08→22:03)
[2019-01-19 07:19] VITALS: BP 100/65
[2019-01-19] MEDS: BUDESONIDE 0.5 MG/2 ML INHA INH SCH ×2 (08:29→20:50)
[2019-01-19] MEDS: Fluticasone/Umeclidin/Vilanter (Trelegy Ellipta 100-62.5-25 INH SCH (09:19)
[2019-01-19] MEDS: AZELASTINE HCL NAS SCH ×2 (09:20→22:04)
[2019-01-19] MEDS: METHADONE 10 MG TABLET PO SCH ×3 (09:20→21:59)
[2019-01-19 10:28] VITALS: BP 119/66
[2019-01-19] MEDS: SODIUM CHLORIDE FLUSH 10ML SYR IVF SCH ×2 (10:30→22:03)
[2019-01-19] MEDS: AMIODARONE 200 MG TABLET PO SCH ×2 (10:31→21:59)
[2019-01-19] MEDS: FUROSEMIDE 20 MG TABLET PO SCH (10:31)
[2019-01-19] MEDS: SENNA/DOCUSATE TABLET PO SCH (10:31)
[2019-01-19] MEDS: ASPIRIN 81 MG TABLET EC PO SCH (10:31)
[2019-01-19] MEDS: SPIRONOLACTONE 25 MG TABLET PO SCH ×2 (10:31→21:59)
[2019-01-19] MEDS: CARVEDILOL 12.5 MG TABLET PO SCH ×2 (10:31→22:04)
[2019-01-19] MEDS: LISINOPRIL 5 MG TABLET PO SCH (10:31)
[2019-01-19 14:04] VITALS: BP 93/52
[2019-01-19] MEDS: ENOXAPARIN 40 MG/0.4 ML SQ SCH (14:39)
[2019-01-19] MEDS: CEFTRIAXONE PMX 1GM/50ML 50 ML IV SCH (14:40)
[2019-01-19] MEDS ORDERED: AMIO200T42 PO (14:46)
[2019-01-19] MEDS ORDERED: AMOX1TAB64 PO ×2 (14:47)
[2019-01-19] MEDS ORDERED: LINEZOLID 600 MG TABLET PO SCH (14:55)
[2019-01-19] MEDS ORDERED: AMOXICILLIN/CLAV 875-125MG TABLET PO SCH ×2 (15:00)
[2019-01-19] MEDS: AMOXICILLIN/CLAV 875-125MG TABLET PO SCH ×2 (15:28→21:59)
[2019-01-19] MEDS ORDERED: DIPHENHYDRAMINE 50 MG/ML, 1ML IVPush PRN (15:30)
[2019-01-19] MEDS ORDERED: methylPREDNISolone SOD SUCC 125 MG/2 ML IVPush PRN (15:30)
[2019-01-19 19:03] VITALS: BP 96/63
[2019-01-19] MEDS: NICOTINE 7 MG/24 HR PATCH.TD24 TD SCH (22:09)
[2019-01-20 02:23] VITALS: BP 98/60
[2019-01-20] MEDS: LEVOTHYROXINE 112 MCG TABLET PO SCH (06:13)
[2019-01-20] MEDS: INSULIN LISPRO 100 UNITS/ML, PEN SQ-INSULIN SCH ×2 (07:00→11:00)
[2019-01-20 08:16] VITALS: BP 96/58
[2019-01-20] MEDS: Fluticasone/Umeclidin/Vilanter (Trelegy Ellipta 100-62.5-25 INH SCH (08:54)
[2019-01-20] MEDS: AZELASTINE HCL NAS SCH (08:54)
[2019-01-20] MEDS: CARVEDILOL 12.5 MG TABLET PO SCH (08:56)
[2019-01-20] MEDS: METHADONE 10 MG TABLET PO SCH (08:57)
[2019-01-20] MEDS: AMOXICILLIN/CLAV 875-125MG TABLET PO SCH (08:58)
[2019-01-20] MEDS: SENNA/DOCUSATE TABLET PO SCH (08:58)
[2019-01-20] MEDS: LISINOPRIL 5 MG TABLET PO SCH (08:58)
[2019-01-20] MEDS: SPIRONOLACTONE 25 MG TABLET PO SCH (08:58)
[2019-01-20] MEDS: ASPIRIN 81 MG TABLET EC PO SCH (08:59)
[2019-01-20] MEDS: FUROSEMIDE 20 MG TABLET PO SCH (08:59)
[2019-01-20] MEDS: AMIODARONE 200 MG TABLET PO SCH (08:59)
[2019-01-20] MEDS: SODIUM CHLORIDE FLUSH 10ML SYR IVF SCH (09:00)
[2019-01-20] MEDS: BUDESONIDE 0.5 MG/2 ML INHA INH SCH (10:20)
[2019-01-20] MEDS ORDERED: AMOX1TAB64 PO (12:32)
== END 2019-01-20 13:12 | disposition home or self-care (01) | DRG 602 ==
LOC: ED 12:28 → EDIP 12:29 → ED 13:39 → 3NW 13:43 → DCLOUNGE 01-20 12:53
PROVIDERS: ADMIT Hospitalist; ATTEND Hospitalist
DX: L03.115 Cellulitis of right lower limb (principal); J96.01 Acute respiratory failure with hypoxia; E87.2 Acidosis; E87.1 Hypo-osmolality and hyponatremia; L97.519 Non-pressure chronic ulcer of other part of right foot with unspecified severity; L03.116 Cellulitis of left lower limb; M94.8X7 Other specified disorders of cartilage, ankle and foot; M19.071 Primary osteoarthritis, right ankle and foot; E11.40 Type 2 diabetes mellitus with diabetic neuropathy, unspecified; E11.621 Type 2 diabetes mellitus with foot ulcer; F17.200 Nicotine dependence, unspecified, uncomplicated; I50.9 Heart failure, unspecified; J44.9 Chronic obstructive pulmonary disease, unspecified; K59.09 Other constipation; M19.90 Unspecified osteoarthritis, unspecified site; Z86.711 Personal history of pulmonary embolism; Z86.79 Personal history of other diseases of the circulatory system; Z95.810 Presence of automatic (implantable) cardiac defibrillator; Z88.0 Allergy status to penicillin
CPT/HCPCS: 36415; 80053; 80202; 82962; 83036; 83605; 83735; 84100; 84439; 84443; 85025; 85651; 86140; 87040; 87070; 87077; 87186; 87205; 93005; 94640; 96365; G0378; J0696; J1650; J3370; J7620; J7626; Q0162; Q9967; J1815; J7050

== ENCOUNTER → 2019-01-22 | Outpatient (CLI) | payer MEDICARE ==
[~2019-01-22] MED LIST changes: +AMOX1TAB64 PO
== END | disposition home or self-care (01) ==
LOC: WOUND 13:23
PROVIDERS: ATTEND Family Medicine
DX: E11.621 Type 2 diabetes mellitus with foot ulcer (principal); L97.522 Non-pressure chronic ulcer of other part of left foot with fat layer exposed; L97.511 Non-pressure chronic ulcer of other part of right foot limited to breakdown of skin; E11.42 Type 2 diabetes mellitus with diabetic polyneuropathy; E11.319 Type 2 diabetes mellitus with unspecified diabetic retinopathy without macular edema; E11.21 Type 2 diabetes mellitus with diabetic nephropathy; I11.0 Hypertensive heart disease with heart failure; I50.9 Heart failure, unspecified; L84 Corns and callosities; J44.9 Chronic obstructive pulmonary disease, unspecified; M19.071 Primary osteoarthritis, right ankle and foot; F17.210 Nicotine dependence, cigarettes, uncomplicated; Z88.0 Allergy status to penicillin; Z86.711 Personal history of pulmonary embolism; Z95.810 Presence of automatic (implantable) cardiac defibrillator
CPT/HCPCS: 11042; 97597; G0463

== ENCOUNTER 2019-01-27 21:09 | Emergency (ER) | payer MEDICARE ==
[~2019-01-27] VITALS: Ht 175.3 cm; Wt 65.9 kg
--- NOTE | 2019-01-27 21:15 | NUR ---
CALLED FOR PT. PT NOT IN LOBBY AT THIS TIME.
[2019-01-27 21:21] VITALS: BP 125/72
--- NOTE | 2019-01-27 21:45 | NUR ---
PT HAS BUMPS ON LEFT AND RIGHT SHOULDER. HAS BALL SHAPED MASS IN LEFT ARM. PT REPORTS PRESENT FOR A FEW WEEKS.
--- NOTE | 2019-01-27 22:33 | NUR ---
Patient/Caregiver given discharge instructions and they have confirmed that they understand the instructions. Patient ambulatory with steady gait.
== END 2019-01-27 22:53 | disposition home or self-care (01) ==
LOC: ED 22:48
DX: M25.511 Pain in right shoulder (principal); R59.0 Localized enlarged lymph nodes; E11.9 Type 2 diabetes mellitus without complications
CPT/HCPCS: 99283

== ENCOUNTER → 2019-02-05 | Outpatient (CLI) | payer MEDICARE ==
[~2019-02-05] MED LIST changes: +CIPR500T3 PO; +METR500T PO
== END | disposition home or self-care (01) ==
LOC: WOUND 10:32
PROVIDERS: ATTEND Family Medicine
DX: E11.621 Type 2 diabetes mellitus with foot ulcer (principal); L97.511 Non-pressure chronic ulcer of other part of right foot limited to breakdown of skin; L97.521 Non-pressure chronic ulcer of other part of left foot limited to breakdown of skin; E11.42 Type 2 diabetes mellitus with diabetic polyneuropathy; E11.319 Type 2 diabetes mellitus with unspecified diabetic retinopathy without macular edema; E11.21 Type 2 diabetes mellitus with diabetic nephropathy; I11.0 Hypertensive heart disease with heart failure; I50.9 Heart failure, unspecified; L84 Corns and callosities; J44.9 Chronic obstructive pulmonary disease, unspecified; M19.071 Primary osteoarthritis, right ankle and foot; F17.210 Nicotine dependence, cigarettes, uncomplicated; Z88.0 Allergy status to penicillin; Z86.711 Personal history of pulmonary embolism; Z95.810 Presence of automatic (implantable) cardiac defibrillator
CPT/HCPCS: 17250; 97597

== ENCOUNTER 2019-02-12 15:45 | Inpatient (IN) | payer MEDICARE ==
[~2019-02-12] VITALS: Ht 175.3 cm; Wt 68.1 kg
[~2019-02-12 15:45] MED LIST changes: -CIPR500T3 PO; -METR500T PO
[2019-02-12] MEDS ORDERED: SODIUM CHLORIDE FLUSH 10ML SYR IVF ONE (16:30)
[2019-02-12] MEDS ORDERED: SODIUM CHLORIDE 0.9% 1,000ML IVBOLUS ONE ×2 (16:30→18:30)
--- NOTE | 2019-02-12 16:30 | NUR ---
MD JI HAS BEEN AT BEDSIDE TO ASSESS PT, ANOSCOPY PREFORMED W/ OBVIOUS BLEEDING HEMORRHOIDS. PT REPORTS CONSTIPATION YESTERDAY, HAVING TAKEN MULTIPLE LAXATIVES & HAVING DIARRHEA AFTER THE LAXATIVES, BLEEDING STARTING AFTER MULTIPLE BMS. PT REPORTS RECENT ABX USE.
[2019-02-12 17:27] LABS: BASOPHILS % (AUTO) 0 % (0-1); EOSINOPHILS # (AUTO) 0.02 x10^3/uL (0-0.4); EOSINOPHILS % (AUTO) 0 % (1-7); LYMPHOCYTES # (AUTO) 1.14 x10^3/uL (1-3.4); LYMPHOCYTES % (AUTO) 7 % (22-44); MD NO; MEAN CORPUSCULAR HEMOGLOBIN 28.5 pg (27.0-34.8); MEAN CORPUSCULAR HGB CONC 32.5 g/dL (32.4-35.8); MEAN CORPUSCULAR VOLUME 87.6 fL (80-100); MEAN PLATELET VOLUME 7.1 fL (7.4-10.4); MONOCYTES # (AUTO) 1.35 x10^3/uL (0.2-0.8); MONOCYTES % (AUTO) 8 % (2-9); NEUTROPHILS # (AUTO) 14.08 x10^3/uL (1.8-6.8); NEUTROPHILS % (AUTO) 85 % (42-75); PLATELET COUNT 379 x10^3/uL (130-400); RED BLOOD COUNT 5.28 x10^6/uL (3.82-5.3); RED CELL DISTRIBUTION WIDTH 16.5 % (9.6-15.2)
[2019-02-12 17:37] LABS: INTERNATIONAL NORMALIZED RATIO 1.03 (0.93-1.1); PROTHROMBIN TIME 10.8 Seconds (9.6-11.5)
[2019-02-12 17:38] LABS: ALANINE AMINOTRANSFERASE 46 U/L (12-78); ALBUMIN 3.3 g/dL (3.4-5.0); ANION GAP 9 mmol/L (5-15); CALCIUM 8.9 mg/dL (8.5-10.1); CHLORIDE 94 mmol/L (98-107)
[2019-02-12 17:41] LABS: ALKALINE PHOSPHATASE 147 U/L (45-117); BILIRUBIN,TOTAL 0.6 mg/dL (0.2-1.0); CREATININE 2.26 mg/dL (0.55-1.02); TOTAL PROTEIN 6.8 g/dL (6.4-8.2)
[2019-02-12] MEDS ORDERED: AMPICILLIN/SULBACTAM 3 GM in SODIUM CHLORIDE 0.9% 100 ML IV ONE (18:30)
[2019-02-12] MEDS ORDERED: METRONIDAZOLE PMX 500MG/100ML 100 ML IV ONE (18:30)
[2019-02-12] MEDS ORDERED: SODIUM CHLORIDE 0.9% 1,000 ML IV SCH (18:36)
[2019-02-12] MEDS ORDERED: ONDANSETRON 2MG/ML, 2ML IVPush PRN (19:00)
[2019-02-12] MEDS ORDERED: ACETAMINOPHEN 325 MG TABLET PO PRN (19:00)
--- NOTE | 2019-02-12 19:10 | NUR ---
RECEIVED REPORT FROM STEVE GREEN. PT IV INFILTRATED. WILL ATTEMPT TO GET IV ACCESS SO FLUID BOLUS AND ANTIBIOTICS CAN FINISH.
[2019-02-12] MEDS ORDERED: ALBUTEROL/IPRATROPIUM 2.5MG/0.5MG, 3 ML HHN PRN (19:30)
--- NOTE | 2019-02-12 19:45 | NUR ---
SECOND IV ATAINED, LARGE BORE 18 GAUGE IN RIGHT BASILIC. FLUIDS RUNNING WIDE OPEN FOR BOLUS.
--- NOTE | 2019-02-12 20:10 | NUR ---
COMMUNICATED TO ALBERTINA ON MED TELE TO GET BP Q 15 MINUTES X 2 WITHIN ONE HOUR OF BOLUS FINISHING. Addendum: 02/12/19 at 2012 by RICKY ALBERTINA GREEN.
[2019-02-12 20:27] VITALS: BP 105/51
--- NOTE | 2019-02-12 20:42 | NUR ---
Regarding the penicillin allergy: Patient reported she reacted with hives to penicillin when she was a baby. Since then she has tolerated ampicillin products and has most recently tolerated Unasyn in the ED. Signed: 02/12/19 at 2041 by Diane MCACIN
[2019-02-12] MEDS: CARVEDILOL 12.5 MG TABLET PO SCH (20:51)
[2019-02-12] MEDS: METHADONE 10 MG TABLET PO SCH (20:51)
[2019-02-12] MEDS: INSULIN LISPRO 100 UNITS/ML, PEN SQ-INSULIN SCH (20:52)
[2019-02-12] MEDS ORDERED: AMIODARONE 200 MG TABLET PO SCH (21:00)
[2019-02-12 22:45] VITALS: BP 105/52
[2019-02-12] MEDS: METRONIDAZOLE PMX 500MG/100ML 100 ML IV SCH (23:05)
[2019-02-13] VITALS (7 sets, daily range): BP systolic 93–123; BP diastolic 46–95
[2019-02-13] MEDS ORDERED: DEXTROSE 50%, 50ML SYRINGE IVPush PRN (04:00)
[2019-02-13] MEDS ORDERED: METHADONE 10 MG TABLET PO ONE (04:00)
[2019-02-13] MEDS ORDERED: DEXTROSE 4 GM TAB.CHEW PO PRN (04:00)
[2019-02-13] MEDS ORDERED: GLUCAGON 1 MG IM PRN (04:00)
[2019-02-13] MEDS ORDERED: AMPICILLIN/SULBACTAM 3 GM in SODIUM CHLORIDE 0.9% 100 ML IV SCH (06:00)
[2019-02-13 06:20] LABS: MICROSCOPIC AUTO
[2019-02-13 06:21] LABS: CULTURE INDICATED? YES
[2019-02-13 06:25] LABS: BASOPHILS # (AUTO) 0.02 x10^3/uL (0-0.1); BASOPHILS % (AUTO) 0 % (0-1); EOSINOPHILS # (AUTO) 0.02 x10^3/uL (0-0.4); EOSINOPHILS % (AUTO) 0 % (1-7); LYMPHOCYTES # (AUTO) 0.88 x10^3/uL (1-3.4); LYMPHOCYTES % (AUTO) 7 % (22-44); MD NO; MEAN CORPUSCULAR HEMOGLOBIN 28.7 pg (27.0-34.8); MEAN CORPUSCULAR HGB CONC 32.7 g/dL (32.4-35.8); MEAN PLATELET VOLUME 7.6 fL (7.4-10.4); MONOCYTES # (AUTO) 1.34 x10^3/uL (0.2-0.8); MONOCYTES % (AUTO) 10 % (2-9); NEUTROPHILS % (AUTO) 83 % (42-75); PLATELET COUNT 203 x10^3/uL (130-400); RED BLOOD COUNT 4.59 x10^6/uL (3.82-5.3); RED CELL DISTRIBUTION WIDTH 16.8 % (9.6-15.2)
[2019-02-13 06:38] LABS: ANION GAP 11 mmol/L (5-15); CALCIUM 8.4 mg/dL (8.5-10.1); CHLORIDE 103 mmol/L (98-107); CREATININE 2.53 mg/dL (0.55-1.02)
[2019-02-13] MEDS: INSULIN LISPRO 100 UNITS/ML, PEN SQ-INSULIN SCH ×4 (07:00→19:49)
[2019-02-13] MEDS: LEVOTHYROXINE 112 MCG TABLET PO SCH (08:29)
[2019-02-13] MEDS: LINAGLIPTIN 5 MG TAB PO SCH (08:32)
[2019-02-13] MEDS: METRONIDAZOLE PMX 500MG/100ML 100 ML IV SCH ×2 (08:34→17:23)
[2019-02-13] MEDS: CARVEDILOL 12.5 MG TABLET PO SCH ×2 (08:49→20:31)
[2019-02-13] MEDS: METHADONE 10 MG TABLET PO SCH (08:58)
[2019-02-13] MEDS ORDERED: SODIUM CHLORIDE 0.9%, 500ML IVBOLUS ONE (09:00)
[2019-02-13] MEDS: SODIUM CHLORIDE FLUSH 10ML SYR IVF SCH ×2 (09:00→20:31)
[2019-02-13] MEDS ORDERED: ALBUTEROL/IPRATROPIUM 2.5MG/0.5MG, 3 ML HHN PRN (10:00)
[2019-02-13] MEDS: SODIUM CHLORIDE 0.9% 1,000 ML IV SCH (12:15)
[2019-02-13] MEDS: CEFTRIAXONE PMX 1GM/50ML 50 ML IV SCH (12:15)
[2019-02-13 13:28] LABS: CREATININE,URINE RANDOM 36.9 mg/dL
[2019-02-13] MEDS: AMIODARONE 200 MG TABLET PO SCH (15:10)
[2019-02-13] MEDS ORDERED: SODIUM CHLORIDE 0.9% 1,000 ML IV SCH (18:36)
[2019-02-14] MEDS: METRONIDAZOLE PMX 500MG/100ML 100 ML IV SCH ×2 (00:03→08:39)
[2019-02-14] MEDS: SODIUM CHLORIDE 0.9% 1,000 ML IV SCH ×2 (00:04→08:39)
[2019-02-14 03:36] VITALS: BP 107/60
[2019-02-14] MEDS: LEVOTHYROXINE 112 MCG TABLET PO SCH (05:11)
[2019-02-14 05:28] LABS: BASOPHILS # (AUTO) 0.04 x10^3/uL (0-0.1); BASOPHILS % (AUTO) 1 % (0-1); EOSINOPHILS # (AUTO) 0.04 x10^3/uL (0-0.4); EOSINOPHILS % (AUTO) 1 % (1-7); LYMPHOCYTES # (AUTO) 1.06 x10^3/uL (1-3.4); LYMPHOCYTES % (AUTO) 13 % (22-44); MD NO; MEAN CORPUSCULAR HEMOGLOBIN 27.8 pg (27.0-34.8); MEAN CORPUSCULAR HGB CONC 31.8 g/dL (32.4-35.8); MEAN CORPUSCULAR VOLUME 87.5 fL (80-100); MEAN PLATELET VOLUME 6.7 fL (7.4-10.4); MONOCYTES % (AUTO) 13 % (2-9); NEUTROPHILS # (AUTO) 6.18 x10^3/uL (1.8-6.8); NEUTROPHILS % (AUTO) 73 % (42-75); PLATELET COUNT 279 x10^3/uL (130-400); RED BLOOD COUNT 3.93 x10^6/uL (3.82-5.3); RED CELL DISTRIBUTION WIDTH 16.5 % (9.6-15.2)
[2019-02-14 05:39] LABS: ALBUMIN 2.3 g/dL (3.4-5.0); ANION GAP 10 mmol/L (5-15); CALCIUM 8.1 mg/dL (8.5-10.1); CHLORIDE 106 mmol/L (98-107)
[2019-02-14 05:40] LABS: CREATININE 2.23 mg/dL (0.55-1.02)
[2019-02-14] MEDS: INSULIN LISPRO 100 UNITS/ML, PEN SQ-INSULIN SCH ×4 (07:00→19:48)
[2019-02-14 07:20] VITALS: BP 103/65
[2019-02-14] MEDS: AMIODARONE 200 MG TABLET PO SCH (08:39)
[2019-02-14] MEDS: SODIUM CHLORIDE FLUSH 10ML SYR IVF SCH ×2 (08:40→20:47)
[2019-02-14] MEDS: LINAGLIPTIN 5 MG TAB PO SCH (08:40)
[2019-02-14] MEDS: CARVEDILOL 12.5 MG TABLET PO SCH ×2 (08:40→20:47)
[2019-02-14 14:00] VITALS: BP 97/52
[2019-02-14] MEDS: METHADONE 10 MG TABLET PO SCH (17:00)
[2019-02-14] MEDS: CEFTRIAXONE PMX 1GM/50ML 50 ML IV SCH (17:00)
[2019-02-14 19:20] VITALS: BP 122/63
[2019-02-15] MEDS: METRONIDAZOLE PMX 500MG/100ML 100 ML IV SCH ×4 (00:19→23:58)
[2019-02-15] MEDS: SODIUM CHLORIDE 0.9% 1,000 ML IV SCH ×3 (00:19→21:05)
[2019-02-15 01:06] VITALS: BP 130/76
[2019-02-15] MEDS: LEVOTHYROXINE 112 MCG TABLET PO SCH (05:34)
[2019-02-15 06:34] LABS: BASOPHILS # (AUTO) 0.03 x10^3/uL (0-0.1); BASOPHILS % (AUTO) 0 % (0-1); EOSINOPHILS # (AUTO) 0.05 x10^3/uL (0-0.4); EOSINOPHILS % (AUTO) 1 % (1-7); LYMPHOCYTES # (AUTO) 1.23 x10^3/uL (1-3.4); LYMPHOCYTES % (AUTO) 14 % (22-44); MD NO; MEAN CORPUSCULAR HEMOGLOBIN 28.9 pg (27.0-34.8); MEAN CORPUSCULAR HGB CONC 32.6 g/dL (32.4-35.8); MEAN CORPUSCULAR VOLUME 88.8 fL (80-100); MONOCYTES # (AUTO) 1.17 x10^3/uL (0.2-0.8); MONOCYTES % (AUTO) 13 % (2-9); NEUTROPHILS # (AUTO) 6.59 x10^3/uL (1.8-6.8); NEUTROPHILS % (AUTO) 73 % (42-75); PLATELET COUNT 312 x10^3/uL (130-400); RED BLOOD COUNT 4.21 x10^6/uL (3.82-5.3); RED CELL DISTRIBUTION WIDTH 16.6 % (9.6-15.2)
[2019-02-15 06:45] LABS: ALBUMIN 2.4 g/dL (3.4-5.0); ANION GAP 7 mmol/L (5-15); CALCIUM 8.3 mg/dL (8.5-10.1); CHLORIDE 108 mmol/L (98-107)
[2019-02-15 06:50] LABS: ALANINE AMINOTRANSFERASE 20 U/L (12-78); ALKALINE PHOSPHATASE 87 U/L (45-117); BILIRUBIN,TOTAL 0.5 mg/dL (0.2-1.0); CREATININE 1.29 mg/dL (0.55-1.02); TOTAL PROTEIN 5.7 g/dL (6.4-8.2)
[2019-02-15] MEDS: INSULIN LISPRO 100 UNITS/ML, PEN SQ-INSULIN SCH ×4 (07:00→19:46)
[2019-02-15 08:02] VITALS: BP 112/62
[2019-02-15] MEDS: CARVEDILOL 12.5 MG TABLET PO SCH ×2 (08:05→21:00)
[2019-02-15] MEDS: LINAGLIPTIN 5 MG TAB PO SCH (08:05)
[2019-02-15] MEDS: METHADONE 10 MG TABLET PO SCH (08:05)
[2019-02-15] MEDS: SODIUM CHLORIDE FLUSH 10ML SYR IVF SCH ×2 (08:05→21:05)
[2019-02-15] MEDS: AMIODARONE 200 MG TABLET PO SCH (08:05)
[2019-02-15 14:05] VITALS: BP 125/66
[2019-02-15] MEDS: CEFTRIAXONE PMX 1GM/50ML 50 ML IV SCH (17:27)
[2019-02-15 20:48] VITALS: BP 134/64
[2019-02-16 01:27] VITALS: BP 128/61
[2019-02-16] MEDS: LEVOTHYROXINE 112 MCG TABLET PO SCH (05:11)
[2019-02-16] MEDS: SODIUM CHLORIDE 0.9% 1,000 ML IV SCH ×2 (05:11→17:15)
[2019-02-16 05:26] LABS: MEAN CORPUSCULAR HEMOGLOBIN 28.2 pg (27.0-34.8); MEAN CORPUSCULAR HGB CONC 32.3 g/dL (32.4-35.8); MEAN CORPUSCULAR VOLUME 87.3 fL (80-100); PLATELET COUNT 324 x10^3/uL (130-400); RED BLOOD COUNT 4.42 x10^6/uL (3.82-5.3); RED CELL DISTRIBUTION WIDTH 16.1 % (9.6-15.2)
[2019-02-16 05:34] LABS: CHLORIDE 107 mmol/L (98-107)
[2019-02-16 05:41] LABS: ANION GAP 10 mmol/L (5-15); CALCIUM 8.2 mg/dL (8.5-10.1); CREATININE 0.87 mg/dL (0.55-1.02)
[2019-02-16 05:53] LABS: BASOPHILS # (AUTO) 0.04 x10^3/uL (0-0.1); BASOPHILS % (AUTO) 1 % (0-1); EOSINOPHILS # (AUTO) 0.07 x10^3/uL (0-0.4); EOSINOPHILS % (AUTO) 1 % (1-7); LYMPHOCYTES # (AUTO) 1.24 x10^3/uL (1-3.4); LYMPHOCYTES % (AUTO) 13 % (22-44); MD SCAN; MONOCYTES # (AUTO) 1.49 x10^3/uL (0.2-0.8); MONOCYTES % (AUTO) 16 % (2-9); NEUTROPHILS # (AUTO) 6.59 x10^3/uL (1.8-6.8); NEUTROPHILS % (AUTO) 70 % (42-75)
[2019-02-16] MEDS: INSULIN LISPRO 100 UNITS/ML, PEN SQ-INSULIN SCH ×4 (07:00→20:49)
[2019-02-16 08:02] VITALS: BP 115/63
[2019-02-16 08:23] LABS: CLOSTRIDIUM DIFFICILE ANTIGEN NEGATIVE; CLOSTRIDIUM DIFFICILE TOXIN NEGATIVE (Negative)
[2019-02-16] MEDS: CARVEDILOL 12.5 MG TABLET PO SCH ×2 (09:00→20:48)
[2019-02-16] MEDS: METRONIDAZOLE PMX 500MG/100ML 100 ML IV SCH ×2 (09:00→17:15)
[2019-02-16] MEDS: LINAGLIPTIN 5 MG TAB PO SCH (09:01)
[2019-02-16] MEDS: AMIODARONE 200 MG TABLET PO SCH (09:01)
[2019-02-16] MEDS: METHADONE 10 MG TABLET PO SCH (09:01)
[2019-02-16] MEDS: SODIUM CHLORIDE FLUSH 10ML SYR IVF SCH ×2 (09:02→20:49)
[2019-02-16] MEDS ORDERED: POTASSIUM CHLORIDE 20 MEQ TAB.ER.PRT PO ONE (10:00)
[2019-02-16 13:35] VITALS: BP 108/65
[2019-02-16] MEDS: CEFTRIAXONE PMX 1GM/50ML 50 ML IV SCH (19:06)
[2019-02-16 19:51] VITALS: BP 112/63
[2019-02-17] MEDS: METRONIDAZOLE PMX 500MG/100ML 100 ML IV SCH ×2 (00:46→08:48)
[2019-02-17 01:44] VITALS: BP 115/63
[2019-02-17] MEDS: SODIUM CHLORIDE 0.9% 1,000 ML IV SCH ×2 (02:46→11:37)
[2019-02-17] MEDS: LEVOTHYROXINE 112 MCG TABLET PO SCH (05:57)
[2019-02-17] MEDS: INSULIN LISPRO 100 UNITS/ML, PEN SQ-INSULIN SCH ×3 (07:00→16:00)
[2019-02-17 07:25] VITALS: BP_SYST 105; BP_SYST 138; BP_DIAS 59; BP_DIAS 64
[2019-02-17] MEDS: SODIUM CHLORIDE FLUSH 10ML SYR IVF SCH (08:49)
[2019-02-17] MEDS: AMIODARONE 200 MG TABLET PO SCH (08:49)
[2019-02-17] MEDS: CARVEDILOL 12.5 MG TABLET PO SCH (08:50)
[2019-02-17] MEDS: LINAGLIPTIN 5 MG TAB PO SCH (08:50)
[2019-02-17] MEDS: METHADONE 10 MG TABLET PO SCH (08:50)
[2019-02-17 09:00] LABS: BASOPHILS # (AUTO) 0.03 x10^3/uL (0-0.1); BASOPHILS % (AUTO) 0 % (0-1); EOSINOPHILS # (AUTO) 0.16 x10^3/uL (0-0.4); EOSINOPHILS % (AUTO) 2 % (1-7); LYMPHOCYTES # (AUTO) 1.34 x10^3/uL (1-3.4); LYMPHOCYTES % (AUTO) 17 % (22-44); MD NO; MEAN CORPUSCULAR HEMOGLOBIN 28.9 pg (27.0-34.8); MEAN CORPUSCULAR HGB CONC 32.6 g/dL (32.4-35.8); MEAN CORPUSCULAR VOLUME 88.7 fL (80-100); MONOCYTES # (AUTO) 1.11 x10^3/uL (0.2-0.8); MONOCYTES % (AUTO) 14 % (2-9); NEUTROPHILS # (AUTO) 5.07 x10^3/uL (1.8-6.8); NEUTROPHILS % (AUTO) 66 % (42-75); PLATELET COUNT 357 x10^3/uL (130-400); RED BLOOD COUNT 4.07 x10^6/uL (3.82-5.3); RED CELL DISTRIBUTION WIDTH 16.3 % (9.6-15.2)
[2019-02-17 09:09] LABS: ANION GAP 4 mmol/L (5-15); CALCIUM 8.2 mg/dL (8.5-10.1); CHLORIDE 110 mmol/L (98-107); CREATININE 0.63 mg/dL (0.55-1.02)
[2019-02-17 09:10] LABS: ALANINE AMINOTRANSFERASE 13 U/L (12-78); ALBUMIN 2.2 g/dL (3.4-5.0)
[2019-02-17 09:12] LABS: ALKALINE PHOSPHATASE 76 U/L (45-117); BILIRUBIN,TOTAL 0.2 mg/dL (0.2-1.0); TOTAL PROTEIN 5.3 g/dL (6.4-8.2)
[2019-02-17 12:56] VITALS: BP 137/75
[2019-02-17] MEDS ORDERED: metroNIDAZOLE 500 MG TABLET PO SCH (13:00)
[2019-02-17] MEDS ORDERED: MAGNESIUM SULFATE PMX 2GM/50ML 50 ML IV ONE (13:00)
[2019-02-17] MEDS ORDERED: METH10TA2 PO (15:14)
[2019-02-17] MEDS ORDERED: METR500T PO (15:14)
[2019-02-17] MEDS ORDERED: CIPR500T3 PO (15:14)
[2019-02-17] MEDS ORDERED: ALBUTEROL SULFATE 2.5 MG/3 ML NPPB PRN (16:00)
[2019-02-17] MEDS ORDERED: CIPROFLOXACIN 500 MG TABLET PO SCH (21:00)
== END 2019-02-17 17:52 | DRG 871 ==
LOC: ED 16:37 → EDIP 18:30 → 4EST 20:14
PROVIDERS: ADMIT Internal Medicine; ATTEND Internal Medicine
DX: A41.9 Sepsis, unspecified organism (principal); N17.0 Acute kidney failure with tubular necrosis; E43 Unspecified severe protein-calorie malnutrition; E87.1 Hypo-osmolality and hyponatremia; K92.1 Melena; A09 Infectious gastroenteritis and colitis, unspecified; I47.2 Ventricular tachycardia; E03.9 Hypothyroidism, unspecified; E11.40 Type 2 diabetes mellitus with diabetic neuropathy, unspecified; E86.1 Hypovolemia; F17.210 Nicotine dependence, cigarettes, uncomplicated; I11.0 Hypertensive heart disease with heart failure; I25.2 Old myocardial infarction; I50.9 Heart failure, unspecified; J44.9 Chronic obstructive pulmonary disease, unspecified; K59.09 Other constipation; M19.90 Unspecified osteoarthritis, unspecified site; R65.20 Severe sepsis without septic shock; Z79.899 Other long term (current) drug therapy; Z86.711 Personal history of pulmonary embolism; Z86.79 Personal history of other diseases of the circulatory system; Z90.710 Acquired absence of both cervix and uterus; Z95.810 Presence of automatic (implantable) cardiac defibrillator; Z68.22 Body mass index [BMI] 22.0-22.9, adult
CPT/HCPCS: 36415; 71045; 74176; 80048; 80053; 81001; 82040; 82570; 82962; 83605; 83735; 84100; 84145; 84300; 85025; 85610; 85730; 86850; 86900; 87040; 87086; 87324; 89055; 93005; 94640; 96361; 96365; G0378; J0295; J0696; J7613; J1815; J3475; J7030; J7040

== ENCOUNTER 2019-03-07 16:17 | Emergency (ER) | payer MEDICARE ==
[~2019-03-07] VITALS: Ht 175.3 cm; Wt 64.0 kg
[~2019-03-07 16:17] MED LIST changes: +CIPR500T3 PO; +METR500T PO
--- NOTE | 2019-03-07 16:38 | NUR ---
PT TO ROOM FROM LOBBY
--- NOTE | 2019-03-07 16:45 | NUR ---
THIS IS A 68 YEAR OLD FEMALE WHO C/O OF RIGHT FOOT WOUND/CELLULITIS X 1 WEEK HX DIABETES
[2019-03-07 17:20] LABS: MD NO
[2019-03-07 17:26] LABS: HCT (SEDRATE) 37.6 % (34.6-47.8)
[2019-03-07 17:27] LABS: BASOPHILS # (AUTO) 0.06 x10^3/uL (0-0.1); BASOPHILS % (AUTO) 1 % (0-1); EOSINOPHILS # (AUTO) 0.14 x10^3/uL (0-0.4); EOSINOPHILS % (AUTO) 2 % (1-7); LYMPHOCYTES # (AUTO) 1.42 x10^3/uL (1-3.4); LYMPHOCYTES % (AUTO) 17 % (22-44); MEAN CORPUSCULAR HEMOGLOBIN 28.6 pg (27.0-34.8); MEAN CORPUSCULAR VOLUME 86.7 fL (80-100); MEAN PLATELET VOLUME 7.1 fL (7.4-10.4); MONOCYTES # (AUTO) 1.19 x10^3/uL (0.2-0.8); MONOCYTES % (AUTO) 14 % (2-9); NEUTROPHILS # (AUTO) 5.56 x10^3/uL (1.8-6.8); NEUTROPHILS % (AUTO) 67 % (42-75); PLATELET COUNT 528 x10^3/uL (130-400); RED BLOOD COUNT 4.24 x10^6/uL (3.82-5.3)
[2019-03-07 17:28] LABS: ALBUMIN 3.2 g/dL (3.4-5.0); ANION GAP 10 mmol/L (5-15); CHLORIDE 90 mmol/L (98-107); CREATININE 0.87 mg/dL (0.55-1.02)
--- NOTE | 2019-03-07 18:57 | NUR ---
REPORT OF PT FROM NORMA ROGERS AND ASSUMING CARE OF PT AT THIS TIME.
[2019-03-07] MEDS ORDERED: SODIUM CHLORIDE 0.9% 1,000ML IVBOLUS ONE (19:00)
[2019-03-07] MEDS ORDERED: NITROGLYCERIN OINT 2%, 1GM TP ONE (20:30)
[2019-03-07 20:51] LABS: ANION GAP 9 mmol/L (5-15); CALCIUM 8.5 mg/dL (8.5-10.1); CHLORIDE 93 mmol/L (98-107); CREATININE 0.77 mg/dL (0.55-1.02)
[2019-03-07] MEDS ORDERED: KETOROLAC 30 MG/1 ML IVPush ONE (21:00)
[2019-03-07] MEDS ORDERED: KETOROLAC 30 MG/1 ML ONE (21:19)
--- NOTE | 2019-03-07 21:38 | NUR ---
Assist RN: patient medicated. discharged with prescriptions and instruction. verbalized understanding.
[2019-03-07 21:39] VITALS: BP 119/67
== END 2019-03-07 21:43 | disposition home or self-care (01) ==
LOC: ED 17:09 → UNDOADMIN 18:28 → EDIP 18:28 → ED 21:43
DX: M13.171 Monoarthritis, not elsewhere classified, right ankle and foot (principal); M10.071 Idiopathic gout, right ankle and foot; R55 Syncope and collapse; E87.1 Hypo-osmolality and hyponatremia; I25.2 Old myocardial infarction; J44.9 Chronic obstructive pulmonary disease, unspecified; I11.0 Hypertensive heart disease with heart failure; I50.9 Heart failure, unspecified; E11.9 Type 2 diabetes mellitus without complications; Z95.0 Presence of cardiac pacemaker
CPT/HCPCS: 36415; 73610; 73630; 80048; 82040; 84295; 84550; 85025; 85651; 93005; 96361; 96374; 99284; J1885; J7030

== ENCOUNTER 2019-07-16 10:13 | Emergency (ER) | payer MEDICARE ==
[~2019-07-16] VITALS: Ht 175.3 cm; Wt 66.0 kg
[2019-07-16 10:24] VITALS: BP 135/54
[2019-07-16 11:01] LABS: BASOPHILS # (AUTO) 0.04 x10^3/uL (0-0.1); BASOPHILS % (AUTO) 0 % (0-1); EOSINOPHILS # (AUTO) 0.14 x10^3/uL (0-0.4); EOSINOPHILS % (AUTO) 1 % (1-7); LYMPHOCYTES # (AUTO) 1.29 x10^3/uL (1-3.4); LYMPHOCYTES % (AUTO) 9 % (22-44); MD NO; MEAN CORPUSCULAR HEMOGLOBIN 24.9 pg (27.0-34.8); MEAN CORPUSCULAR VOLUME 77.9 fL (80-100); MEAN PLATELET VOLUME 7.3 fL (7.4-10.4); MONOCYTES # (AUTO) 1.11 x10^3/uL (0.2-0.8); MONOCYTES % (AUTO) 8 % (2-9); NEUTROPHILS % (AUTO) 82 % (42-75); PLATELET COUNT 433 x10^3/uL (130-400); RED BLOOD COUNT 5.54 x10^6/uL (3.82-5.3); RED CELL DISTRIBUTION WIDTH 20.9 % (9.6-15.2)
[2019-07-16 11:10] LABS: ANION GAP 8 mmol/L (5-15); CALCIUM 8.9 mg/dL (8.5-10.1); CHLORIDE 101 mmol/L (98-107); CREATININE 1.01 mg/dL (0.55-1.02)
[2019-07-16] MEDS ORDERED: KETOROLAC 30 MG/1 ML ONE (11:36)
[2019-07-16] MEDS ORDERED: KETOROLAC 30 MG/1 ML IM ONE (12:00)
== END 2019-07-16 11:54 | disposition home or self-care (01) ==
LOC: ED 11:45
DX: M25.462 Effusion, left knee (principal); J44.9 Chronic obstructive pulmonary disease, unspecified; I11.0 Hypertensive heart disease with heart failure; I50.9 Heart failure, unspecified; M19.90 Unspecified osteoarthritis, unspecified site; F17.200 Nicotine dependence, unspecified, uncomplicated
CPT/HCPCS: 36415; 73564; 80048; 84550; 85025; 96372; 99284; J1885

== ENCOUNTER 2019-07-28 13:03 | Inpatient (IN) | payer MEDICARE ==
[~2019-07-28] VITALS: Ht 175.3 cm; Wt 64.6 kg
[2019-07-28] MEDS ORDERED: TRANEXAMIC ACID 100 MG/ML, 10ML ONE (13:18)
[2019-07-28] MEDS ORDERED: PHENYLEPHRINE NASAL 1%, 15ML SPRAY ONE (13:18)
--- NOTE | 2019-07-28 13:22 | NUR ---
AT BEDSIDE, MEDS PROVIDED TO FOR ADMINISTRATION
[2019-07-28] MEDS ORDERED: PHENYLEPHRINE NASAL 1%, 15ML SPRAY NAS ONE (13:30)
[2019-07-28] MEDS ORDERED: TRANEXAMIC ACID 100 MG/ML, 10ML TP ONE (13:30)
[2019-07-28] MEDS ORDERED: SILVER NITRATE STICK TP ONE ×3 (14:15→14:30)
--- NOTE | 2019-07-28 14:23 | NUR ---
TATO RN: SILVER NITRATE GIVEN TO PROVIDOR.
--- NOTE | 2019-07-28 14:52 | NUR ---
FLOAT RN: TITI BACK AT BEDSIDE TO PLACE RIHNO ROCKETS. PATIENT CONTINUES TO HAVE EPISTAXIS AFTER PLACEMENT. ERMD TO CONSULT ENT.
--- NOTE | 2019-07-28 15:28 | NUR ---
ED RN TO CONSULT ENT MD, EPISTAXIS NOT RESOLVED AFTER NASAL BALLOON.
[2019-07-28] MEDS ORDERED: CEPHALEXIN 500 MG CAPSULE ONE (16:28)
[2019-07-28] MEDS ORDERED: CEPHALEXIN 500 MG CAPSULE PO ONE (16:30)
[2019-07-28] MEDS ORDERED: SODIUM CHLORIDE FLUSH 10ML SYR IVF ONE (16:30)
[2019-07-28 16:38] LABS: BASOPHILS # (AUTO) 0.16 x10^3/uL (0-0.1); BASOPHILS % (AUTO) 1 % (0-1); EOSINOPHILS # (AUTO) 0.26 x10^3/uL (0-0.4); EOSINOPHILS % (AUTO) 2 % (1-7); LYMPHOCYTES # (AUTO) 1.73 x10^3/uL (1-3.4); LYMPHOCYTES % (AUTO) 15 % (22-44); MD NO; MEAN CORPUSCULAR HEMOGLOBIN 24.8 pg (27.0-34.8); MEAN CORPUSCULAR HGB CONC 31.6 g/dL (32.4-35.8); MEAN CORPUSCULAR VOLUME 78.4 fL (80-100); MEAN PLATELET VOLUME 6.8 fL (7.4-10.4); MONOCYTES % (AUTO) 5 % (2-9); NEUTROPHILS % (AUTO) 77 % (42-75); PLATELET COUNT 483 x10^3/uL (130-400); RED BLOOD COUNT 5.53 x10^6/uL (3.82-5.3); RED CELL DISTRIBUTION WIDTH 21.3 % (9.6-15.2)
--- NOTE | 2019-07-28 16:42 | NUR ---
PT TO BE ADMITTED, IV ESTABLISHED. PT PLACED ON MULTIPLE NEEDLE STITCHER, PT HAS PACEMAKER. VSS. CALL LIGHT WITHIN REACH.
[2019-07-28 16:48] LABS: ALBUMIN 3.5 g/dL (3.4-5.0); ANION GAP 6 mmol/L (5-15); CALCIUM 8.9 mg/dL (8.5-10.1); CHLORIDE 101 mmol/L (98-107)
[2019-07-28] MEDS ORDERED: hydrALAzine 20 MG/ML, 1ML IVPush PRN (17:00)
[2019-07-28] MEDS ORDERED: ONDANSETRON 2MG/ML, 2ML IVPush PRN (17:00)
[2019-07-28] MEDS ORDERED: SODIUM CHLORIDE FLUSH 10ML SYR IVF PRN (17:00)
[2019-07-28] MEDS ORDERED: PROMETHAZINE 25 MG/ML, 1ML IM PRN (17:00)
[2019-07-28] MEDS ORDERED: LABETALOL 5MG/ML, 20ML IVPush PRN (17:00)
--- NOTE | 2019-07-28 17:58 | NUR ---
PT TAKEN TO BATHROOM IN WHEELCHAIR. PT REMOVED TO ROOM 18, AWAITING BED ASSIGNMENT.
[2019-07-28] MEDS ORDERED: INSULIN LISPRO SINGLE DOSE, ER SQ-INSULIN ONE (19:31)
[2019-07-28] MEDS ORDERED: CLINDAMYCIN 300 MG CAPSULE ONE (19:34)
[2019-07-28] MEDS ORDERED: NICOTINE 7 MG/24 HR PATCH.TD24 ONE (19:34)
[2019-07-28] MEDS: CLINDAMYCIN 300 MG CAPSULE PO SCH ×2 (19:38→22:00)
[2019-07-28] MEDS: NICOTINE 7 MG/24 HR PATCH.TD24 TD SCH (19:38)
--- NOTE | 2019-07-28 19:39 | NUR ---
REQUEST FOR PEN TUBED TO PHARM
[2019-07-28] MEDS: INSULIN LISPRO 100 UNITS/ML, PEN SQ-INSULIN SCH ×2 (19:47→22:00)
--- NOTE | 2019-07-28 20:08 | NUR ---
PT MOSTLY SLEEPING. WHEN AWOKEN PT REQUESTING HER METHADONE. PT INFORMED THE ED IS EXTREMELY BUSY HOWEVER THIS RN WILL GO TO THE PHARMACY TO GET THE MEDICINE WHEN ABLE. PT DENIES FURTHER NEEDS AT THIS TIME.
[2019-07-28] MEDS: METHADONE 10 MG TABLET PO SCH ×2 (20:26→22:00)
--- NOTE | 2019-07-28 20:26 | NUR ---
METHADONE OBTAINED FROM PHARMACY. PT MEDICATED PER OCT. PT DENIES FURTHER NEEDS AT THIS TIME. CALL LIGHT ON LAP.
--- NOTE | 2019-07-28 21:08 | NUR ---
CALLED REPORT. ROOM STILL DIRTY.
[2019-07-28 21:47] VITALS: BP 167/84
[2019-07-28] MEDS: CARVEDILOL 12.5 MG TABLET PO SCH (22:04)
[2019-07-28] MEDS: AMIODARONE 200 MG TABLET PO SCH (22:04)
[2019-07-28] MEDS: ACETAMINOPHEN 325 MG TABLET PO PRN (22:04)
[2019-07-28] MEDS: SPIRONOLACTONE 25 MG TABLET PO SCH (22:06)
[2019-07-28] MEDS: ALBUTEROL/IPRATROPIUM 2.5MG/0.5MG, 3 ML NPPB SCH ×2 (23:20→23:32)
[2019-07-29 00:24] VITALS: BP 121/61
[2019-07-29] MEDS: morphine SULFATE 10 MG/ML, 1ML IVPush PRN ×2 (02:29→17:11)
[2019-07-29] MEDS: ACETAMINOPHEN 325 MG TABLET PO PRN ×3 (03:56→19:59)
[2019-07-29] MEDS: CLINDAMYCIN 300 MG CAPSULE PO SCH ×4 (05:40→21:13)
[2019-07-29] MEDS: SPIRONOLACTONE 25 MG TABLET PO SCH ×2 (05:40→17:11)
[2019-07-29] MEDS: LEVOTHYROXINE 112 MCG TABLET PO SCH (05:41)
[2019-07-29] MEDS: INSULIN LISPRO 100 UNITS/ML, PEN SQ-INSULIN SCH ×4 (07:00→21:13)
[2019-07-29] MEDS: AMIODARONE 200 MG TABLET PO SCH ×2 (08:03→21:12)
[2019-07-29] MEDS: METHADONE 10 MG TABLET PO SCH ×3 (08:03→21:13)
[2019-07-29] MEDS: CARVEDILOL 12.5 MG TABLET PO SCH ×2 (08:03→21:13)
[2019-07-29] MEDS: FUROSEMIDE 20 MG TABLET PO SCH (08:03)
[2019-07-29] MEDS: LISINOPRIL 5 MG TABLET PO SCH (08:03)
[2019-07-29 08:15] LABS: BASOPHILS # (AUTO) 0.05 x10^3/uL (0-0.1); BASOPHILS % (AUTO) 0 % (0-1); EOSINOPHILS # (AUTO) 0.09 x10^3/uL (0-0.4); EOSINOPHILS % (AUTO) 1 % (1-7); LYMPHOCYTES # (AUTO) 1.74 x10^3/uL (1-3.4); LYMPHOCYTES % (AUTO) 16 % (22-44); MD NO; MEAN CORPUSCULAR HEMOGLOBIN 24.1 pg (27.0-34.8); MEAN CORPUSCULAR HGB CONC 31.3 g/dL (32.4-35.8); MEAN PLATELET VOLUME 7.3 fL (7.4-10.4); MONOCYTES # (AUTO) 0.76 x10^3/uL (0.2-0.8); MONOCYTES % (AUTO) 7 % (2-9); NEUTROPHILS % (AUTO) 75 % (42-75); PLATELET COUNT 445 x10^3/uL (130-400); RED BLOOD COUNT 5.13 x10^6/uL (3.82-5.3); RED CELL DISTRIBUTION WIDTH 21.6 % (9.6-15.2)
[2019-07-29 08:58] VITALS: BP 126/73
[2019-07-29] MEDS: DOCUSATE 100 MG CAPSULE PO SCH (12:32)
[2019-07-29 12:59] VITALS: BP 104/62
[2019-07-29] MEDS ORDERED: SODIUM CHLORIDE 0.9%, 500ML IVBOLUS ONE (14:00)
[2019-07-29] MEDS: NICOTINE 7 MG/24 HR PATCH.TD24 TD SCH (17:11)
[2019-07-29 18:55] VITALS: BP 140/65
[2019-07-29] MEDS: ALBUTEROL/IPRATROPIUM 2.5MG/0.5MG, 3 ML NPPB SCH (19:16)
[2019-07-29] MEDS ORDERED: ZOLPIDEM 5MG TABLET PO PRN (23:00)
[2019-07-30 00:19] VITALS: BP 124/68
[2019-07-30] MEDS: morphine SULFATE 10 MG/ML, 1ML IVPush PRN ×4 (01:36→17:21)
[2019-07-30] MEDS: ACETAMINOPHEN 325 MG TABLET PO PRN (02:42)
[2019-07-30] MEDS: LEVOTHYROXINE 112 MCG TABLET PO SCH (05:08)
[2019-07-30] MEDS: CLINDAMYCIN 300 MG CAPSULE PO SCH ×4 (05:08→22:01)
[2019-07-30] MEDS: SPIRONOLACTONE 25 MG TABLET PO SCH ×2 (05:08→17:22)
[2019-07-30] MEDS: ALBUTEROL/IPRATROPIUM 2.5MG/0.5MG, 3 ML NPPB SCH ×4 (06:55→21:00)
[2019-07-30] MEDS: INSULIN LISPRO 100 UNITS/ML, PEN SQ-INSULIN SCH ×4 (07:00→22:01)
[2019-07-30 07:40] VITALS: BP 130/67
[2019-07-30 08:18] LABS: BASOPHILS # (AUTO) 0.04 x10^3/uL (0-0.1); BASOPHILS % (AUTO) 0 % (0-1); EOSINOPHILS # (AUTO) 0.06 x10^3/uL (0-0.4); EOSINOPHILS % (AUTO) 1 % (1-7); LYMPHOCYTES # (AUTO) 2.05 x10^3/uL (1-3.4); LYMPHOCYTES % (AUTO) 19 % (22-44); MD NO; MEAN CORPUSCULAR HEMOGLOBIN 24.6 pg (27.0-34.8); MEAN CORPUSCULAR HGB CONC 32.1 g/dL (32.4-35.8); MEAN CORPUSCULAR VOLUME 76.5 fL (80-100); MEAN PLATELET VOLUME 6.8 fL (7.4-10.4); MONOCYTES # (AUTO) 0.94 x10^3/uL (0.2-0.8); MONOCYTES % (AUTO) 8 % (2-9); NEUTROPHILS # (AUTO) 8.02 x10^3/uL (1.8-6.8); NEUTROPHILS % (AUTO) 72 % (42-75); PLATELET COUNT 406 x10^3/uL (130-400); RED BLOOD COUNT 5.15 x10^6/uL (3.82-5.3); RED CELL DISTRIBUTION WIDTH 21.3 % (9.6-15.2)
[2019-07-30] MEDS: LISINOPRIL 5 MG TABLET PO SCH (09:47)
[2019-07-30] MEDS: AMIODARONE 200 MG TABLET PO SCH ×2 (09:48→22:01)
[2019-07-30] MEDS: DOCUSATE 100 MG CAPSULE PO SCH (09:48)
[2019-07-30] MEDS: METHADONE 10 MG TABLET PO SCH ×3 (09:48→22:01)
[2019-07-30] MEDS: CARVEDILOL 12.5 MG TABLET PO SCH ×2 (09:48→22:01)
[2019-07-30 12:53] VITALS: BP 101/57
[2019-07-30] MEDS: NICOTINE 7 MG/24 HR PATCH.TD24 TD SCH (17:22)
[2019-07-30 19:33] VITALS: BP 123/63
[2019-07-31 00:24] VITALS: BP 126/66
[2019-07-31] MEDS: ACETAMINOPHEN 325 MG TABLET PO PRN ×5 (02:19→23:45)
[2019-07-31] MEDS: LEVOTHYROXINE 112 MCG TABLET PO SCH (05:42)
[2019-07-31] MEDS: CLINDAMYCIN 300 MG CAPSULE PO SCH ×4 (05:42→21:49)
[2019-07-31] MEDS: SPIRONOLACTONE 25 MG TABLET PO SCH ×2 (05:42→17:46)
[2019-07-31] MEDS: morphine SULFATE 10 MG/ML, 1ML IVPush PRN (05:42)
[2019-07-31] MEDS: INSULIN LISPRO 100 UNITS/ML, PEN SQ-INSULIN SCH ×4 (07:00→21:43)
[2019-07-31] MEDS: ALBUTEROL/IPRATROPIUM 2.5MG/0.5MG, 3 ML NPPB SCH ×4 (07:15→19:34)
[2019-07-31 08:05] VITALS: BP 114/66
[2019-07-31] MEDS: CARVEDILOL 12.5 MG TABLET PO SCH ×2 (09:33→21:42)
[2019-07-31] MEDS: METHADONE 10 MG TABLET PO SCH ×3 (09:33→21:42)
[2019-07-31] MEDS: AMIODARONE 200 MG TABLET PO SCH ×2 (09:33→21:43)
[2019-07-31] MEDS: LISINOPRIL 5 MG TABLET PO SCH (09:33)
[2019-07-31] MEDS: DOCUSATE 100 MG CAPSULE PO SCH (09:33)
[2019-07-31] MEDS: FUROSEMIDE 20 MG TABLET PO SCH (09:36)
[2019-07-31 14:05] VITALS: BP 100/51
[2019-07-31] MEDS: NICOTINE 7 MG/24 HR PATCH.TD24 TD SCH (17:46)
[2019-07-31 18:54] VITALS: BP 100/61
[2019-07-31 21:44] VITALS: BP 113/58
[2019-08-01 00:19] VITALS: BP 112/68
[2019-08-01] MEDS: LEVOTHYROXINE 112 MCG TABLET PO SCH (05:13)
[2019-08-01] MEDS: CLINDAMYCIN 300 MG CAPSULE PO SCH ×2 (05:13→11:34)
[2019-08-01] MEDS: SPIRONOLACTONE 25 MG TABLET PO SCH (05:13)
[2019-08-01] MEDS: ACETAMINOPHEN 325 MG TABLET PO PRN (05:13)
[2019-08-01 06:54] VITALS: BP 109/66
[2019-08-01] MEDS: INSULIN LISPRO 100 UNITS/ML, PEN SQ-INSULIN SCH ×2 (07:00→11:00)
[2019-08-01] MEDS: ALBUTEROL/IPRATROPIUM 2.5MG/0.5MG, 3 ML NPPB SCH ×2 (07:05→10:35)
[2019-08-01] MEDS: AMIODARONE 200 MG TABLET PO SCH (08:01)
[2019-08-01] MEDS: DOCUSATE 100 MG CAPSULE PO SCH (08:02)
[2019-08-01] MEDS: METHADONE 10 MG TABLET PO SCH (08:02)
[2019-08-01] MEDS: FUROSEMIDE 20 MG TABLET PO SCH (08:02)
[2019-08-01] MEDS: CARVEDILOL 12.5 MG TABLET PO SCH (08:02)
[2019-08-01] MEDS: LISINOPRIL 5 MG TABLET PO SCH (08:02)
[2019-08-01] MEDS ORDERED: BUDESONIDE 0.5 MG/2 ML INHA INH SCH (09:00)
[2019-08-01] MEDS ORDERED: CLIN300C8 PO (10:59)
== END 2019-08-01 13:12 | disposition home or self-care (01) | DRG 151 ==
LOC: ED 14:03 → EDIP 16:54 → 4EST 21:35
PROVIDERS: ADMIT Internal Medicine; ATTEND Family Medicine
PROC: 2Y41X5Z Packing of Nasal Region using Packing Material (ICD-10-PCS; principal; 2019-07-28)
DX: R04.0 Epistaxis (principal); J44.9 Chronic obstructive pulmonary disease, unspecified; I50.9 Heart failure, unspecified; I11.0 Hypertensive heart disease with heart failure; E11.9 Type 2 diabetes mellitus without complications; G89.4 Chronic pain syndrome; D72.829 Elevated white blood cell count, unspecified; F17.200 Nicotine dependence, unspecified, uncomplicated; E03.9 Hypothyroidism, unspecified; I25.2 Old myocardial infarction; Z86.711 Personal history of pulmonary embolism; Z88.0 Allergy status to penicillin; Z95.810 Presence of automatic (implantable) cardiac defibrillator; Z79.82 Long term (current) use of aspirin
CPT/HCPCS: 36415; 71045; 80048; 82040; 82962; 83036; 84443; 85014; 85018; 85025; 93005; 94640; 99285; G0378; J7620; J7626; J1815; J2270; J7040

== ENCOUNTER 2019-08-04 15:14 | Emergency (ER) | payer MEDICARE ==
[~2019-08-04] VITALS: Ht 175.3 cm; Wt 64.0 kg
[~2019-08-04 15:14] MED LIST changes: +CLIN300C8 PO
[2019-08-04 15:48] VITALS: BP 127/37
--- NOTE | 2019-08-04 16:15 | NUR ---
nasal tampons bilateral nares removed from pt's nostrils with pt tolerating well
--- NOTE | 2019-08-04 16:49 | NUR ---
small amount of blood after nasal packing removed with none currently. ambulated to discharge window with use of walker, steady gait
== END 2019-08-04 16:52 | disposition home or self-care (01) ==
LOC: ED 16:46
DX: R04.0 Epistaxis (principal)
CPT/HCPCS: 99281

== ENCOUNTER 2019-09-11 07:05 | Emergency (ER) | payer MEDICARE ==
[~2019-09-11] VITALS: Ht 175.3 cm; Wt 68.0 kg
--- NOTE | 2019-09-11 07:43 | NUR ---
FIRST CONTACT WITH PT. PT C/O CP WITH BILAT SHOULDER AND NECK PAIN. PT WOKE WITH CP THIS AM. HX CHF PT HAS PACER. PT'S AOX4. RESPS EVEN AND UNLABORED. NSR RATE 70'S ON STEAM GIGGER AT THIS TIME. ALL MONITORS IN PLACE. CALL LIGHT WITHIN REACH. PA AT BEDSIDE TO EVALUATE AT THIS TIME.
[2019-09-11 07:59] LABS: BASOPHILS # (AUTO) 0.08 x10^3/uL (0-0.1); BASOPHILS % (AUTO) 1 % (0-1); EOSINOPHILS # (AUTO) 0.25 x10^3/uL (0-0.4); EOSINOPHILS % (AUTO) 4 % (1-7); LYMPHOCYTES # (AUTO) 2.27 x10^3/uL (1-3.4); LYMPHOCYTES % (AUTO) 32 % (22-44); MD NO; MEAN CORPUSCULAR HEMOGLOBIN 24.2 pg (27.0-34.8); MEAN CORPUSCULAR HGB CONC 31.7 g/dL (32.4-35.8); MEAN CORPUSCULAR VOLUME 76.5 fL (80-100); MEAN PLATELET VOLUME 6.9 fL (7.4-10.4); MONOCYTES % (AUTO) 13 % (2-9); NEUTROPHILS # (AUTO) 3.56 x10^3/uL (1.8-6.8); NEUTROPHILS % (AUTO) 51 % (42-75); PLATELET COUNT 477 x10^3/uL (130-400); RED BLOOD COUNT 4.83 x10^6/uL (3.82-5.3); RED CELL DISTRIBUTION WIDTH 20.2 % (9.6-15.2)
[2019-09-11 08:11] LABS: ALANINE AMINOTRANSFERASE 26 U/L (12-78); ALBUMIN 3.4 g/dL (3.4-5.0); ANION GAP 6 mmol/L (5-15); CALCIUM 8.9 mg/dL (8.5-10.1); CHLORIDE 101 mmol/L (98-107); CREATININE 0.89 mg/dL (0.55-1.02)
[2019-09-11 08:15] LABS: ALKALINE PHOSPHATASE 104 U/L (45-117); BILIRUBIN,TOTAL 0.3 mg/dL (0.2-1.0); TOTAL PROTEIN 7.3 g/dL (6.4-8.2); TROPONIN I < 0.015 ng/mL (0.000-0.045)
--- NOTE | 2019-09-11 08:53 | NUR ---
PT AMB TO BR WITH STEADY GAIT.
--- NOTE | 2019-09-11 09:08 | NUR ---
PT BACK TO ROOM WITH STEADY GAIT FROM BR. PT'S AOX4. RESPS EVEN AND UNLABORED.
[2019-09-11 09:48] LABS: TROPONIN I < 0.015 ng/mL (0.000-0.045)
[2019-09-11 09:52] VITALS: BP 112/54
--- NOTE | 2019-09-11 09:52 | NUR ---
PT RESTING IN [facility]. PT'S AOX4. RESPS EVEN AND UNLABORED. ALL MONITORS IN PLACE. CALL LIGHT WITHIN REACH.
--- NOTE | 2019-09-11 10:09 | NUR ---
Patient given discharge instructions and they have confirmed that they understand the instructions. Patient ambulatory with steady gait.
== END 2019-09-11 10:10 | disposition home or self-care (01) ==
LOC: ED 07:29
DX: R07.89 Other chest pain (principal); I11.0 Hypertensive heart disease with heart failure; I50.9 Heart failure, unspecified; J44.9 Chronic obstructive pulmonary disease, unspecified; E11.9 Type 2 diabetes mellitus without complications; I25.2 Old myocardial infarction; Z95.0 Presence of cardiac pacemaker; Z90.710 Acquired absence of both cervix and uterus
CPT/HCPCS: 36415; 71046; 80053; 83880; 84484; 85025; 93005; 99284

== ENCOUNTER → 2019-12-09 | Outpatient (CLI) | payer MEDICARE ==
[~2019-12-09] MED LIST changes: +CEFD300C37 PO; +METH4TAB2 PO; +REGADENOSON 0.4 MG/5 ML SYRINGE ONE
== END | disposition home or self-care (01) ==
LOC: CFH 08:48
PROVIDERS: ATTEND Internal Medicine Cardiovascular Disease
DX: I21.29 ST elevation (STEMI) myocardial infarction involving other sites (principal); I10 Essential (primary) hypertension; I42.9 Cardiomyopathy, unspecified
CPT/HCPCS: 78452; 93017; A9502; J2785

== ENCOUNTER 2019-12-12 13:16 | Emergency (ER) | payer MEDICARE ==
[~2019-12-12] VITALS: Ht 175.3 cm; Wt 66.5 kg
[~2019-12-12 13:16] MED LIST changes: -REGADENOSON 0.4 MG/5 ML SYRINGE ONE
--- NOTE | 2019-12-12 13:39 | NUR ---
PT CAME IN CO "RASH AROUND MY NECK AND SHOULDERS. I THINK ITS FROM MY LIFE ALERT NECKLACE. I AM NOT WEARING IT ANYMORE."
--- NOTE | 2019-12-12 14:02 | NUR ---
REPORT GIVEN TO NORMA GREENFIELD
--- NOTE | 2019-12-12 14:08 | NUR ---
ASSUMED CARE OF PATIENT. REPORT GIVEN FROM NORMA PATEL. PT WATCHIG TV IN ROOM. NO ACUTE DISTRESS NOTED. CALL LIGHT IN PLACE WILL CONTINUE TO MONITOR.
[2019-12-12] MEDS ORDERED: DIPHENHYDRAMINE 25 MG CAPSULE ONE (14:25)
[2019-12-12] MEDS ORDERED: DIPHENHYDRAMINE 25 MG CAPSULE PO ONE (14:30)
--- NOTE | 2019-12-12 14:38 | NUR ---
HELPED PATIENT GET DRESSED, BROTHER CALLED FOR A RIDE HOME.
--- NOTE | 2019-12-12 14:47 | NUR ---
DR KERN IN ROOM UPDATING PATIENT. PATIENT READY FOR DC
[2019-12-12 14:57] VITALS: BP 160/62
== END 2019-12-12 15:06 | disposition home or self-care (01) ==
LOC: ED 14:02
DX: L24.9 Irritant contact dermatitis, unspecified cause (principal); I25.2 Old myocardial infarction; J44.9 Chronic obstructive pulmonary disease, unspecified; I11.0 Hypertensive heart disease with heart failure; I50.9 Heart failure, unspecified; E11.9 Type 2 diabetes mellitus without complications; Z90.710 Acquired absence of both cervix and uterus; Z88.0 Allergy status to penicillin
CPT/HCPCS: 99283; J7512; Q0163

== ENCOUNTER 2019-12-13 07:00 | Outpatient (CLI) | payer MEDICARE | END 2019-12-13 23:59 | disposition home or self-care (01) | LOC: CVU 07:00 | PROVIDERS: ATTEND Internal Medicine Cardiovascular Disease | DX: I08.1 Rheumatic disorders of both mitral and tricuspid valves (principal); I10 Essential (primary) hypertension; I42.9 Cardiomyopathy, unspecified | CPT/HCPCS: 93306 ==

== ENCOUNTER 2019-12-14 06:38 | Emergency (ER) | payer MEDICARE ==
[~2019-12-14] VITALS: Ht 170.2 cm; Wt 67.0 kg
[2019-12-14 06:43] VITALS: BP 153/83
--- NOTE | 2019-12-14 06:49 | NUR ---
PT AMBULATES FROM TRIAGE TO ROOM WITH STEADY GAIT
--- NOTE | 2019-12-14 07:00 | NUR ---
REPORT RECEIVED FROM NORMA MORALES. ERP TO BEDSIDE. PT SITTING UP TALKING WITH ERP.
== END 2019-12-14 07:29 | disposition home or self-care (01) ==
LOC: ED 06:55
DX: B02.9 Zoster without complications (principal); J44.9 Chronic obstructive pulmonary disease, unspecified; I10 Essential (primary) hypertension; E11.9 Type 2 diabetes mellitus without complications; I25.2 Old myocardial infarction; G89.29 Other chronic pain; F17.290 Nicotine dependence, other tobacco product, uncomplicated
CPT/HCPCS: 99283

== ENCOUNTER → 2019-12-24 | Outpatient (CLI) | payer MEDICARE | END | disposition home or self-care (01) | LOC: RAD 11:24 | DX: Z01.810 Encounter for preprocedural cardiovascular examination (principal); J43.9 Emphysema, unspecified; S22.070D Wedge compression fracture of T9-T10 vertebra, subsequent encounter for fracture with routine healing; X58.XXXD Exposure to other specified factors, subsequent encounter | CPT/HCPCS: 71046 ==

== ENCOUNTER 2020-06-15 11:31 | Emergency (ER) | payer MEDICARE ==
[~2020-06-15] VITALS: Ht 170.2 cm; Wt 70.0 kg
[2020-06-15 11:53] VITALS: BP 145/78
[2020-06-15] MEDS ORDERED: SODIUM CHLORIDE FLUSH 10ML SYR IVF ONE (12:00)
[2020-06-15 12:54] LABS: BASOPHILS % (AUTO) 1 % (0-1); EOSINOPHILS % (AUTO) 1 % (1-7); LYMPHOCYTES % (AUTO) 19 % (22-44); MEAN CORPUSCULAR HEMOGLOBIN 22.6 pg (27.0-34.8); MEAN CORPUSCULAR HGB CONC 31.4 g/dL (32.4-35.8); MEAN PLATELET VOLUME 7.1 fL (7.4-10.4); MONOCYTES % (AUTO) 9 % (2-9); NEUTROPHILS % (AUTO) 70 % (42-75); PLATELET COUNT 503 x10^3/uL (130-400); RED BLOOD COUNT 5.46 x10^6/uL (3.82-5.3); RED CELL DISTRIBUTION WIDTH 18.6 % (9.6-15.2)
[2020-06-15 13:00] LABS: MD NO
[2020-06-15 13:06] LABS: ALANINE AMINOTRANSFERASE 27 U/L (12-78); ALBUMIN 4.1 g/dL (3.4-5.0); ANION GAP 5 mmol/L (5-15); CALCIUM 9.6 mg/dL (8.5-10.1); CHLORIDE 101 mmol/L (98-107); CREATININE 0.97 mg/dL (0.55-1.02)
[2020-06-15 13:09] LABS: ALKALINE PHOSPHATASE 133 U/L (45-117); BILIRUBIN,TOTAL 0.4 mg/dL (0.2-1.0); TROPONIN I < 0.015 ng/mL (0.000-0.045)
== END 2020-06-15 13:49 | disposition left against medical advice (07) ==
LOC: ED 12:28
DX: I10 Essential (primary) hypertension (principal); R06.02 Shortness of breath; R11.0 Nausea; M54.9 Dorsalgia, unspecified; R07.89 Other chest pain
CPT/HCPCS: 36415; 71045; 80053; 84484; 85025; 99284

== ENCOUNTER → 2020-08-05 | Outpatient (CLI) | payer MEDICARE ==
[~2020-08-05] MED LIST changes: -CLIN300C8 PO; +CLIN300C9 PO
[2020-08-05 09:20] LABS: ALBUMIN 3.7 g/dL (3.4-5.0); ANION GAP 4 mmol/L (5-15); CHLORIDE 104 mmol/L (98-107)
[2020-08-05 09:21] LABS: BASOPHILS % (AUTO) 2 % (0-1); EOSINOPHILS % (AUTO) 3 % (1-7); LYMPHOCYTES % (AUTO) 29 % (22-44); MEAN CORPUSCULAR HEMOGLOBIN 23.4 pg (27.0-34.8); MEAN CORPUSCULAR HGB CONC 31.9 g/dL (32.4-35.8); MONOCYTES % (AUTO) 11 % (2-9); NEUTROPHILS % (AUTO) 55 % (42-75); PLATELET COUNT 414 x10^3/uL (130-400); RED BLOOD COUNT 5.15 x10^6/uL (3.82-5.3); RED CELL DISTRIBUTION WIDTH 20.1 % (9.6-15.2)
[2020-08-05 09:28] LABS: MD NO
[2020-08-05 09:34] LABS: ALANINE AMINOTRANSFERASE 18 U/L (12-78); ALKALINE PHOSPHATASE 126 U/L (45-117); BILIRUBIN,TOTAL 0.3 mg/dL (0.2-1.0); CHOLESTEROL, TOTAL 228 mg/dL (140-239); CREATININE 0.89 mg/dL (0.55-1.02); HDL CHOL % 25 % (28-40); HDL CHOLESTEROL (DIRECT) 57 mg/dL (40-60); LDL CHOLESTEROL,CALCULATED 141 mg/dL (54-169); LDL/HDL RATIO 2.5 (0.5-3.0); T4 (THYROXINE) 13.9 mcg/dL (4.8-13.9); TOTAL PROTEIN 7.4 g/dL (6.4-8.2); TRIGLYCERIDES 149 mg/dL (50-200); VLDL CHOLESTEROL 30 mg/dL (0-25)
== END | disposition home or self-care (01) ==
LOC: LAB 08:43
PROVIDERS: ATTEND Internal Medicine Cardiovascular Disease
DX: I10 Essential (primary) hypertension (principal); E78.00 Pure hypercholesterolemia, unspecified; R53.83 Other fatigue
CPT/HCPCS: 36415; 80053; 80061; 83036; 84436; 84443; 84481; 85025

== ENCOUNTER 2020-08-14 18:53 | Emergency (ER) | payer MEDICARE ==
[~2020-08-14] VITALS: Ht 175.3 cm; Wt 74.6 kg
--- NOTE | 2020-08-14 19:20 | NUR ---
pt to room from lobby
[2020-08-14] MEDS ORDERED: ASPIRIN 81 MG TABLET CHEW PO ONE (19:30)
--- NOTE | 2020-08-14 19:44 | NUR ---
CC OF HAVING A HOT FLASH AND FEELING LIKE SHE MIGHT PASS OUT. PT STATES SHE TOOK HER NORMAL BP OF LISINOPRIL MEDICATION BEFORE DINNER, ATE DINNER, FELT THE HOT FLASH, CHECKED HER BP HAD SBP >180 AND SO SHE TOOK HER PRN BP MED "THAT STARTS WITH AN A". PT STATES SHE IS NOW FEELING MUCH BETTER. PT TALKING WITH CLEAR AND EVEN RESPIRATIONS, CONNECTED TO ROLLER
[2020-08-14 19:46] LABS: ALBUMIN 3.8 g/dL (3.4-5.0); ANION GAP 6 mmol/L (5-15); CALCIUM 8.9 mg/dL (8.5-10.1); CHLORIDE 105 mmol/L (98-107); CREATININE 1.01 mg/dL (0.55-1.02)
[2020-08-14 19:50] LABS: TROPONIN I < 0.015 ng/mL (0.000-0.045)
[2020-08-14 20:01] LABS: MEAN CORPUSCULAR HEMOGLOBIN 23.4 pg (27.0-34.8); MEAN CORPUSCULAR HGB CONC 31.9 g/dL (32.4-35.8); MEAN PLATELET VOLUME 7.7 fL (7.4-10.4); RED BLOOD COUNT 5.12 x10^6/uL (3.82-5.3); RED CELL DISTRIBUTION WIDTH 20.3 % (9.6-15.2)
[2020-08-14] MEDS ORDERED: ASPIRIN 81 MG TABLET CHEW ONE ×2 (20:10→20:15)
[2020-08-14 20:27] LABS: MD YES
[2020-08-14 20:30] LABS: PLATELET COUNT 322 x10^3/uL (130-400)
[2020-08-14 20:35] LABS: BANDS%(MANUAL) 1 % (0-7); EOS#(MANUAL) 0.29 x10^3/uL (0.0-0.4); EOS% (MANUAL) 3 % (1-7); LYMPHS% (MANUAL) 40 % (22-44); MONOS#(MANUAL) 0.76 x10^3/uL (0.3-2.7); MONOS% (MANUAL) 8 % (2-9); SEG#(MANUAL) 4.56 x10^3/uL (1.8-6.8); SEGS% (MANUAL) 48 % (42-75)
[2020-08-14 20:36] LABS: ANISOCYTOSIS 1+; MICROCYTOSIS 1+; POLYCHROMASIA 1+
[2020-08-14 20:37] LABS: OVALOCYTES 1+
[2020-08-14 20:39] LABS: <PLATELET ESTIMATE> ADEQUATE; <PLT MORPHOLOGY> NORMAL PLT MORPH
[2020-08-14 21:15] VITALS: BP 104/59
--- NOTE | 2020-08-14 21:15 | NUR ---
TASK RN ASSISTING PRIMARY RN BRENNAN WITH DISCHARGE ONLY. PT AMBULATED TO RESTROOM WITH STEADY GAIT WITH OWN WALKER AND THEN TO DISCHARGE DESK. GIVEN DISCHARGE INSTRUCTIONS, VERBALIZED UNDERSTANDING, HANDOUTS IN HAND. PT STATES "CALLED BOTHER AN SON TO COME PICK ME UP, THEY ARE HERE WAITING." PT DENIES WINN, DIZZINESS, CP, SOB AT DISCHARGE. VSS AT D/C.
== END 2020-08-14 21:24 | disposition home or self-care (01) ==
LOC: ED 20:00
DX: R55 Syncope and collapse (principal); I11.0 Hypertensive heart disease with heart failure; I50.9 Heart failure, unspecified; I44.7 Left bundle-branch block, unspecified; R07.9 Chest pain, unspecified; E03.9 Hypothyroidism, unspecified
CPT/HCPCS: 36415; 71045; 80048; 82040; 83880; 84484; 85025; 93005; 99285

== ENCOUNTER → 2020-08-31 | Outpatient (CLI) | payer MEDICARE ==
[~2020-08-31] MED LIST changes: +ACET650S21 PO; +AMLODIPINE PO; +AZEL137S4 NAS; +DICLOFENAC PO; +FLUT9.9S NAS; +LEVO137T3 PO; +LORA10TA75 PO
[2020-08-31 11:27] LABS: BASOPHILS % (AUTO) 1 % (0-1); EOSINOPHILS % (AUTO) 3 % (1-7); LYMPHOCYTES % (AUTO) 29 % (22-44); MEAN CORPUSCULAR HEMOGLOBIN 23.7 pg (27.0-34.8); MEAN CORPUSCULAR HGB CONC 32.2 g/dL (32.4-35.8); MEAN PLATELET VOLUME 7.4 fL (7.4-10.4); MONOCYTES % (AUTO) 12 % (2-9); NEUTROPHILS % (AUTO) 54 % (42-75); PLATELET COUNT 360 x10^3/uL (130-400); RED BLOOD COUNT 4.85 x10^6/uL (3.82-5.3); RED CELL DISTRIBUTION WIDTH 20.3 % (9.6-15.2)
[2020-08-31 11:29] LABS: ALANINE AMINOTRANSFERASE 21 U/L (12-78); ALBUMIN 3.8 g/dL (3.4-5.0); ANION GAP 8 mmol/L (5-15); CALCIUM 8.9 mg/dL (8.5-10.1); CHLORIDE 104 mmol/L (98-107); CREATININE 1.09 mg/dL (0.55-1.02); MD NO
[2020-08-31 11:31] LABS: ALKALINE PHOSPHATASE 128 U/L (45-117); BILIRUBIN,TOTAL 0.3 mg/dL (0.2-1.0); INTERNATIONAL NORMALIZED RATIO 0.94 (0.93-1.1); TOTAL PROTEIN 7.2 g/dL (6.4-8.2)
== END | disposition home or self-care (01) ==
LOC: STAR 10:00
PROVIDERS: ATTEND Orthopaedic Surgery
DX: Z01.812 Encounter for preprocedural laboratory examination (principal); Z20.828 Contact with and (suspected) exposure to other viral communicable diseases; T84.84XA Pain due to internal orthopedic prosthetic devices, implants and grafts, initial encounter; Z96.652 Presence of left artificial knee joint
CPT/HCPCS: 80053; 83036; 85025; 85610; 85730; 87081; 87635

== ENCOUNTER 2020-09-02 18:47 | Emergency (ER) | payer MEDICARE ==
[~2020-09-02] VITALS: Ht 172.7 cm; Wt 75.2 kg
--- NOTE | 2020-09-02 19:15 | NUR ---
XR TECH AT BEDSIDE FOR CXR
--- NOTE | 2020-09-02 19:32 | NUR ---
PATIENT RESTING IN STRETCHER IN NAD. CHEST PAIN INTERMITTENTLY BILATERAL UPPER CHEST. DENIES ON RN FIRST ENTERING ROOM AND TOWARDS END OF ASSESSMENT PATIENT C/O "CRAMPING" OVER L PPM SITE AND RADIATING UP IN TO L SIDE OF NECK LASTING A FEW SECONDS AND SUBSIDING. PATIENT STATES THIS CRAMPING PAIN IS NOT ALWAYS OCCURING DURING EXERTION; IS HAPPENING AT REST WELL. SOB WITH EXERTION. NOT WITNESSED BY RN PATIENT WAS RESTING IN BED FOR ASSESSMENT. NO OTHER FOCAL DEFICITS NOTED DURING ASSESSMENT. EQUAL COMMODITY LEAD STRENGTHS. BLE STRENGTH STRONG. PATIENT HAS HOME RW AT BEDSIDE. VS REMAIN STABLE ON RA. LAB AT BEDSIDE DURING ASSESSMENT FOR LAB DRAW. IN NAD. A&OX4. SAFETY MAINTAINED. PATIENT REQUESTS LIGHTS TO BE TURNED OFF, DOOR AND CURTAIN OPEN AND 1 SIDE RAIL DOWN FOR SHE REPORTS "CLAUSTROPHOBIA". CALL BARLOW IN REACH. NOT IMPULSIVE. BED IN LOWEST POSITION. WILL CONTINUE TO MONITOR.
[2020-09-02 19:33] LABS: BASOPHILS % (AUTO) 1 % (0-1); EOSINOPHILS % (AUTO) 2 % (1-7); LYMPHOCYTES % (AUTO) 26 % (22-44); MEAN CORPUSCULAR HEMOGLOBIN 23.6 pg (27.0-34.8); MEAN CORPUSCULAR HGB CONC 32.1 g/dL (32.4-35.8); MEAN PLATELET VOLUME 7.1 fL (7.4-10.4); MONOCYTES % (AUTO) 10 % (2-9); NEUTROPHILS % (AUTO) 61 % (42-75); PLATELET COUNT 380 x10^3/uL (130-400); RED BLOOD COUNT 4.97 x10^6/uL (3.82-5.3); RED CELL DISTRIBUTION WIDTH 20.3 % (9.6-15.2)
[2020-09-02 19:35] LABS: MD NO
[2020-09-02 19:45] LABS: ALBUMIN 3.9 g/dL (3.4-5.0); ANION GAP 5 mmol/L (5-15); CHLORIDE 101 mmol/L (98-107); CREATININE 1.05 mg/dL (0.55-1.02)
[2020-09-02 19:49] LABS: TROPONIN I < 0.015 ng/mL (0.000-0.045)
--- NOTE | 2020-09-02 20:18 | NUR ---
amulated patient to bathroom with RW from home. steady gait. no SOB noted
[2020-09-02 20:44] VITALS: BP 136/65
--- NOTE | 2020-09-02 20:50 | NUR ---
discharge instructions reviewed with patient. no further questions from patient at this time. patient acknowledges s/s to watch for to call 911 or emergently return to ED. patient ambulatory out w/ no significant SOB. full sentences during ambulation. steady gait. all personal belongings with patient on departure. VS remain stable prior to DC on RA.
== END 2020-09-02 20:53 | disposition home or self-care (01) ==
LOC: ED 19:38
DX: J44.1 Chronic obstructive pulmonary disease with (acute) exacerbation (principal); R07.9 Chest pain, unspecified; R06.00 Dyspnea, unspecified; R94.31 Abnormal electrocardiogram [ECG] [EKG]; I11.0 Hypertensive heart disease with heart failure; I50.9 Heart failure, unspecified; I25.2 Old myocardial infarction; M19.90 Unspecified osteoarthritis, unspecified site; E11.9 Type 2 diabetes mellitus without complications; Z87.891 Personal history of nicotine dependence; Z90.710 Acquired absence of both cervix and uterus
CPT/HCPCS: 36415; 71045; 80048; 82040; 83880; 84484; 85025; 93005; 99285

== ENCOUNTER → 2020-10-12 | Outpatient (CLI) | payer MEDICARE ==
[~2020-10-12] MED LIST changes: +ACET-1600 PO; -CIPR500T3 PO; +CIPR500T4 PO; +DOCU-131 PO; +MELO7.5T31 PO; +OXYC5CAP2 PO; +TRAM50TA2 PO
[2020-10-12 15:39] LABS: BASOPHILS % (AUTO) 1 % (0-1); EOSINOPHILS % (AUTO) 2 % (1-7); LYMPHOCYTES % (AUTO) 15 % (22-44); MEAN CORPUSCULAR HGB CONC 31.7 g/dL (32.4-35.8); MEAN PLATELET VOLUME 6.8 fL (7.4-10.4); MONOCYTES % (AUTO) 8 % (2-9); NEUTROPHILS % (AUTO) 75 % (42-75); PLATELET COUNT 575 x10^3/uL (130-400); RED BLOOD COUNT 4.47 x10^6/uL (3.82-5.3); RED CELL DISTRIBUTION WIDTH 18.8 % (9.6-15.2)
[2020-10-12 15:47] LABS: MD NO
[2020-10-12 16:44] LABS: HCT (SEDRATE) 33.8 % (34.6-47.8)
== END | disposition home or self-care (01) ==
LOC: LAB 15:07
PROVIDERS: ATTEND Physician Assistant Surgical
DX: T84.54XD Infection and inflammatory reaction due to internal left knee prosthesis, subsequent encounter (principal); T84.84XA Pain due to internal orthopedic prosthetic devices, implants and grafts, initial encounter; Y83.8 Other surgical procedures as the cause of abnormal reaction of the patient, or of later complication, without mention of misadventure at the time of the procedure; Z96.652 Presence of left artificial knee joint
CPT/HCPCS: 36415; 85025; 85651; 86140

== ENCOUNTER 2020-12-18 09:50 | Emergency (ER) | payer MEDICARE ==
[~2020-12-18] VITALS: Ht 175.3 cm; Wt 71.3 kg
[~2020-12-18 09:50] MED LIST changes: +DAPT500V6 IV; +ERTA1VIA IV
--- NOTE | 2020-12-18 10:10 | NUR ---
PT AMBULATORY TO ROOM FROM TRIAGE, PT CHANGED INTO GOWN. MONITORS IN PLACE. CALL LIGHT WITHIN REACH.
--- NOTE | 2020-12-18 10:58 | NUR ---
PT SITTING ON GURNEY CALMLY, NADN/VSS. CALL LIGHT WITHIN REACH. NO NEEDS AT THIS TIME
[2020-12-18 11:28] LABS: ALANINE AMINOTRANSFERASE 13 U/L (12-78); ALBUMIN 3.4 g/dL (3.4-5.0); ANION GAP 6 mmol/L (5-15); CALCIUM 9.1 mg/dL (8.5-10.1); CHLORIDE 103 mmol/L (98-107); CREATININE 0.76 mg/dL (0.55-1.02)
[2020-12-18 11:33] LABS: ALKALINE PHOSPHATASE 147 U/L (45-117); BILIRUBIN,TOTAL 0.2 mg/dL (0.2-1.0); TOTAL PROTEIN 7.7 g/dL (6.4-8.2); TROPONIN I < 0.015 ng/mL (0.000-0.045)
[2020-12-18 11:59] LABS: BASOPHILS % (AUTO) 1 % (0-1); EOSINOPHILS % (AUTO) 2 % (1-7); LYMPHOCYTES % (AUTO) 21 % (22-44); MEAN CORPUSCULAR HEMOGLOBIN 21.7 pg (27.0-34.8); MEAN CORPUSCULAR HGB CONC 31.1 g/dL (32.4-35.8); MONOCYTES % (AUTO) 10 % (2-9); NEUTROPHILS % (AUTO) 67 % (42-75); PLATELET COUNT 442 x10^3/uL (130-400)
--- NOTE | 2020-12-18 12:16 | NUR ---
PT AMBULATORY TO BR WITH WALKER. NO NEW COMPLAINTS. VSS/NADN. PT STATES SHE FEELS SOME CHEST PAIN RELIEF SINCE ARRIVAL. NO NEEDS AT THIS TIME
[2020-12-18 12:53] LABS: ANISOCYTOSIS 1+
[2020-12-18 12:54] LABS: OVALOCYTES 1+; POLYCHROMASIA 1+
[2020-12-18 12:55] LABS: <PLATELET ESTIMATE> INCREASED; <PLT MORPHOLOGY> NORMAL PLT MORPH; MICROCYTOSIS 2+
[2020-12-18 13:19] VITALS: BP 108/55
--- NOTE | 2020-12-18 13:20 | NUR ---
Patient given discharge instructions and they have confirmed that they understand the instructions. Patient ambulatory with steady gait.
== END 2020-12-18 13:21 | disposition home or self-care (01) ==
LOC: ED 13:15
DX: R07.89 Other chest pain (principal); R11.0 Nausea; R94.31 Abnormal electrocardiogram [ECG] [EKG]; I11.0 Hypertensive heart disease with heart failure; I50.9 Heart failure, unspecified; J44.9 Chronic obstructive pulmonary disease, unspecified; E11.9 Type 2 diabetes mellitus without complications; Z95.0 Presence of cardiac pacemaker; Z90.710 Acquired absence of both cervix and uterus
CPT/HCPCS: 36415; 71045; 80053; 83690; 84484; 85025; 93005; 99285

== ENCOUNTER 2020-12-26 10:13 | Inpatient (IN) | payer MEDICARE ==
[~2020-12-26] VITALS: Ht 175.3 cm; Wt 71.8 kg
--- NOTE | 2020-12-26 10:36 | NUR ---
PT HAS CO HTN AND CHEST PAIN W NAUSEA. TOOK A BP MED THIS AM. DOES NOT RADIATE ANYWHERE. PT ON SPINNER CAP FRAME. EKG IN TRIAGE.
[2020-12-26 10:52] LABS: BASOPHILS % (AUTO) 1 % (0-1); EOSINOPHILS % (AUTO) 2 % (1-7); LYMPHOCYTES % (AUTO) 26 % (22-44); MEAN CORPUSCULAR HEMOGLOBIN 21.4 pg (27.0-34.8); MEAN CORPUSCULAR HGB CONC 31.1 g/dL (32.4-35.8); MEAN PLATELET VOLUME 7.2 fL (7.4-10.4); MONOCYTES % (AUTO) 8 % (2-9); NEUTROPHILS % (AUTO) 64 % (42-75); PLATELET COUNT 454 x10^3/uL (130-400); RED BLOOD COUNT 4.92 x10^6/uL (3.82-5.3); RED CELL DISTRIBUTION WIDTH 18.9 % (9.6-15.2)
[2020-12-26 10:58] LABS: MD NO
[2020-12-26] MEDS ORDERED: ASPIRIN 325 MG TABLET PO ONE (11:00)
[2020-12-26] MEDS ORDERED: ASPIRIN 325 MG TABLET ONE (11:03)
[2020-12-26] MEDS ORDERED: ASPIRIN 325 MG TABLET EC ONE (11:03)
[2020-12-26 11:04] LABS: ALANINE AMINOTRANSFERASE 12 U/L (12-78); ALBUMIN 3.2 g/dL (3.4-5.0); ANION GAP 7 mmol/L (5-15); CHLORIDE 104 mmol/L (98-107)
[2020-12-26 11:09] LABS: ALKALINE PHOSPHATASE 142 U/L (45-117); BILIRUBIN,TOTAL 0.3 mg/dL (0.2-1.0); CREATININE 0.81 mg/dL (0.55-1.02); TOTAL PROTEIN 7.4 g/dL (6.4-8.2); TROPONIN I < 0.015 ng/mL (0.000-0.045)
--- NOTE | 2020-12-26 11:52 | NUR ---
IV ESTABLISHED. PT RESTING. POC FOR ADMIT
[2020-12-26] MEDS ORDERED: ONDANSETRON 2MG/ML, 2ML IVPush PRN (12:00)
[2020-12-26] MEDS ORDERED: ENALAPRILAT 1.25 MG/ML, 2ML IVPush PRN (12:00)
[2020-12-26] MEDS ORDERED: morphine SULFATE 10 MG/ML, 1ML IVPush PRN (12:00)
[2020-12-26 12:42] LABS: TROPONIN I < 0.015 ng/mL (0.000-0.045)
--- NOTE | 2020-12-26 13:07 | NUR ---
REPORT TO MITA
[2020-12-26 13:25] VITALS: BP 124/68
[2020-12-26 14:09] VITALS: BP 114/67
[2020-12-26] MEDS: SPIRONOLACTONE 25 MG TABLET PO SCH (14:24)
[2020-12-26] MEDS: AMIODARONE 200 MG TABLET PO SCH (14:24)
[2020-12-26] MEDS: AMOXICILLIN/CLAV 875-125MG TABLET PO SCH (14:24)
[2020-12-26] MEDS: LEVOTHYROXINE 137 MCG TABLET PO SCH (14:24)
[2020-12-26] MEDS: METHADONE 10 MG TABLET PO SCH ×2 (16:02→21:13)
[2020-12-26 18:15] LABS: TROPONIN I < 0.015 ng/mL (0.000-0.045)
[2020-12-26 20:29] VITALS: BP 99/64
[2020-12-26] MEDS ORDERED: MELATONIN 5 MG TABLET PO PRN (21:00)
[2020-12-26] MEDS: DOCUSATE 100 MG CAPSULE PO PRN (21:13)
[2020-12-26] MEDS: DOXYCYCLINE 100MG TABLET PO SCH (21:13)
[2020-12-26] MEDS: ASPIRIN 81 MG TABLET EC PO SCH (21:13)
[2020-12-27] VITALS (7 sets, daily range): BP systolic 77–123; BP diastolic 44–80
[2020-12-27 04:49] LABS: BASOPHILS % (AUTO) 1 % (0-1); EOSINOPHILS % (AUTO) 2 % (1-7); LYMPHOCYTES % (AUTO) 30 % (22-44); MEAN CORPUSCULAR HEMOGLOBIN 21.8 pg (27.0-34.8); MEAN CORPUSCULAR HGB CONC 31.8 g/dL (32.4-35.8); MEAN PLATELET VOLUME 7.1 fL (7.4-10.4); MONOCYTES % (AUTO) 11 % (2-9); NEUTROPHILS % (AUTO) 56 % (42-75); PLATELET COUNT 412 x10^3/uL (130-400); RED CELL DISTRIBUTION WIDTH 19.2 % (9.6-15.2)
[2020-12-27 04:50] LABS: MD NO
[2020-12-27 04:59] LABS: ANION GAP 6 mmol/L (5-15); CHLORIDE 104 mmol/L (98-107); CREATININE 0.79 mg/dL (0.55-1.02)
[2020-12-27] MEDS: LEVOTHYROXINE 137 MCG TABLET PO SCH (06:07)
[2020-12-27] MEDS: OMEPRAZOLE 20 MG CAPSULE.DR PO SCH (06:07)
[2020-12-27] MEDS: BUDESONIDE 0.5 MG/2 ML INHA INH SCH ×2 (07:00→19:29)
[2020-12-27] MEDS: ALBUTEROL/IPRATROPIUM 2.5MG/0.5MG, 3 ML NPPB SCH ×4 (07:00→19:29)
[2020-12-27] MEDS: METHADONE 10 MG TABLET PO SCH ×3 (08:20→20:43)
[2020-12-27] MEDS: SPIRONOLACTONE 25 MG TABLET PO SCH (09:00)
[2020-12-27] MEDS ORDERED: OMNIPAQUE 350 MG/ML, 75ML BOTTLE ONE (11:10)
[2020-12-27] MEDS: HEPARIN 5,000 UNITS/ML, 1ML SQ SCH ×2 (12:37→20:44)
[2020-12-27] MEDS: DOXYCYCLINE 100MG TABLET PO SCH ×2 (12:38→20:43)
[2020-12-27] MEDS: AMOXICILLIN/CLAV 875-125MG TABLET PO SCH (12:38)
[2020-12-27] MEDS: AMIODARONE 200 MG TABLET PO SCH (12:39)
[2020-12-27] MEDS: ASPIRIN 81 MG TABLET EC PO SCH ×2 (12:39→20:43)
[2020-12-27] MEDS: DOCUSATE 100 MG CAPSULE PO PRN (16:13)
[2020-12-27] MEDS: ACETAMINOPHEN 325 MG TABLET PO PRN (23:42)
[2020-12-28 00:44] VITALS: BP 114/61
[2020-12-28 05:04] LABS: HCT (SEDRATE) 30.7 % (34.6-47.8)
[2020-12-28] MEDS: LEVOTHYROXINE 137 MCG TABLET PO SCH (06:35)
[2020-12-28] MEDS: OMEPRAZOLE 20 MG CAPSULE.DR PO SCH (06:36)
[2020-12-28] MEDS: HEPARIN 5,000 UNITS/ML, 1ML SQ SCH ×3 (06:36→21:10)
[2020-12-28 07:15] VITALS: BP 112/49
[2020-12-28] MEDS: ALBUTEROL/IPRATROPIUM 2.5MG/0.5MG, 3 ML NPPB SCH ×4 (07:32→19:40)
[2020-12-28] MEDS: BUDESONIDE 0.5 MG/2 ML INHA INH SCH ×2 (07:32→19:40)
[2020-12-28] MEDS: AMIODARONE 200 MG TABLET PO SCH (08:13)
[2020-12-28] MEDS: AMOXICILLIN/CLAV 875-125MG TABLET PO SCH (08:13)
[2020-12-28] MEDS: METHADONE 10 MG TABLET PO SCH ×3 (08:13→21:09)
[2020-12-28] MEDS: DOXYCYCLINE 100MG TABLET PO SCH ×2 (08:13→21:09)
[2020-12-28] MEDS: ASPIRIN 81 MG TABLET EC PO SCH ×2 (08:13→21:09)
[2020-12-28] MEDS: ONDANSETRON ODT 4 MG PO PRN (09:00)
[2020-12-28 13:15] VITALS: BP 115/60
[2020-12-28] MEDS ORDERED: REGADENOSON 0.4 MG/5 ML SYRINGE ONE (14:23)
[2020-12-28] MEDS: ACETAMINOPHEN 325 MG TABLET PO PRN ×2 (16:04→21:09)
[2020-12-28 18:34] VITALS: BP 101/62
[2020-12-29 00:01] VITALS: BP 132/62
[2020-12-29] MEDS: ACETAMINOPHEN 325 MG TABLET PO PRN ×4 (04:10→20:43)
[2020-12-29] MEDS: LEVOTHYROXINE 137 MCG TABLET PO SCH (05:31)
[2020-12-29] MEDS: OMEPRAZOLE 20 MG CAPSULE.DR PO SCH (05:31)
[2020-12-29] MEDS: HEPARIN 5,000 UNITS/ML, 1ML SQ SCH ×3 (05:31→20:44)
[2020-12-29 05:41] LABS: BASOPHILS % (AUTO) 1 % (0-1); EOSINOPHILS % (AUTO) 2 % (1-7); LYMPHOCYTES % (AUTO) 21 % (22-44); MD NO; MEAN CORPUSCULAR HEMOGLOBIN 21.9 pg (27.0-34.8); MEAN CORPUSCULAR HGB CONC 31.5 g/dL (32.4-35.8); MEAN PLATELET VOLUME 7.4 fL (7.4-10.4); MONOCYTES % (AUTO) 15 % (2-9); NEUTROPHILS % (AUTO) 62 % (42-75); PLATELET COUNT 338 x10^3/uL (130-400); RED CELL DISTRIBUTION WIDTH 18.8 % (9.6-15.2)
[2020-12-29 05:53] LABS: ALBUMIN 2.8 g/dL (3.4-5.0); ANION GAP 5 mmol/L (5-15); CALCIUM 8.9 mg/dL (8.5-10.1); CHLORIDE 100 mmol/L (98-107)
[2020-12-29 05:57] LABS: ALANINE AMINOTRANSFERASE 12 U/L (12-78); ALKALINE PHOSPHATASE 114 U/L (45-117); BILIRUBIN,TOTAL 0.3 mg/dL (0.2-1.0); CREATININE 0.74 mg/dL (0.55-1.02); TOTAL PROTEIN 6.8 g/dL (6.4-8.2)
[2020-12-29 07:15] VITALS: BP 103/60
[2020-12-29] MEDS: ALBUTEROL/IPRATROPIUM 2.5MG/0.5MG, 3 ML NPPB SCH ×2 (07:58→21:10)
[2020-12-29] MEDS: BUDESONIDE 0.5 MG/2 ML INHA INH SCH ×2 (07:58→21:10)
[2020-12-29] MEDS: AMOXICILLIN/CLAV 875-125MG TABLET PO SCH (09:07)
[2020-12-29] MEDS: ASPIRIN 81 MG TABLET EC PO SCH ×2 (09:07→20:43)
[2020-12-29] MEDS: AMIODARONE 200 MG TABLET PO SCH (09:08)
[2020-12-29] MEDS: DOXYCYCLINE 100MG TABLET PO SCH ×2 (09:08→20:43)
[2020-12-29] MEDS: METHADONE 10 MG TABLET PO SCH ×3 (09:08→20:43)
[2020-12-29] MEDS: DOCUSATE 100 MG CAPSULE PO PRN ×2 (09:16→20:51)
[2020-12-29] MEDS: ONDANSETRON ODT 4 MG PO PRN (11:06)
[2020-12-29 12:34] VITALS: BP 102/74
[2020-12-29 15:48] VITALS: BP_SYST 111; BP_SYST 116; BP_SYST 128; BP_DIAS 54; BP_DIAS 58; BP_DIAS 65
[2020-12-29] MEDS ORDERED: DOXY100T PO (17:14)
[2020-12-29] MEDS ORDERED: OMEP-110 PO (17:14)
[2020-12-29] MEDS ORDERED: AMIO200T42 PO (17:14)
[2020-12-29 18:23] VITALS: BP 106/44
[2020-12-30 00:26] VITALS: BP 127/58
[2020-12-30] MEDS: OMEPRAZOLE 20 MG CAPSULE.DR PO SCH (05:35)
[2020-12-30] MEDS: HEPARIN 5,000 UNITS/ML, 1ML SQ SCH ×2 (05:35→13:00)
[2020-12-30] MEDS: LEVOTHYROXINE 137 MCG TABLET PO SCH (05:36)
[2020-12-30 07:14] VITALS: BP 112/66
[2020-12-30] MEDS: BUDESONIDE 0.5 MG/2 ML INHA INH SCH (07:38)
[2020-12-30] MEDS: ALBUTEROL/IPRATROPIUM 2.5MG/0.5MG, 3 ML NPPB SCH (07:38)
[2020-12-30] MEDS: DOXYCYCLINE 100MG TABLET PO SCH (08:46)
[2020-12-30] MEDS: AMIODARONE 200 MG TABLET PO SCH (08:46)
[2020-12-30] MEDS: ACETAMINOPHEN 325 MG TABLET PO PRN ×2 (08:46→16:07)
[2020-12-30] MEDS: ASPIRIN 81 MG TABLET EC PO SCH (08:46)
[2020-12-30] MEDS: METHADONE 10 MG TABLET PO SCH ×2 (08:46→16:07)
[2020-12-30] MEDS: AMOXICILLIN/CLAV 875-125MG TABLET PO SCH (08:46)
[2020-12-30 10:54] LABS: BASOPHILS % (AUTO) 1 % (0-1); EOSINOPHILS % (AUTO) 2 % (1-7); LYMPHOCYTES % (AUTO) 17 % (22-44); MEAN CORPUSCULAR HEMOGLOBIN 21.6 pg (27.0-34.8); MEAN CORPUSCULAR HGB CONC 31.1 g/dL (32.4-35.8); MEAN PLATELET VOLUME 7.1 fL (7.4-10.4); MONOCYTES % (AUTO) 8 % (2-9); NEUTROPHILS % (AUTO) 73 % (42-75); PLATELET COUNT 400 x10^3/uL (130-400); RED BLOOD COUNT 4.54 x10^6/uL (3.82-5.3); RED CELL DISTRIBUTION WIDTH 19.4 % (9.6-15.2)
[2020-12-30 10:58] LABS: MD NO
[2020-12-30] MEDS ORDERED: AMOX1TAB12 PO (12:02)
[2020-12-30 13:13] VITALS: BP 117/78
== END 2020-12-30 17:45 | disposition home health service (06) | DRG 559 ==
LOC: ED 10:28 → INTOOBSV 11:34 → EDIP 11:34 → SUATTDRO 11:59 → 5SO 13:21 → OBSVTOIN 15:48
PROVIDERS: ADMIT Hospitalist; ATTEND Family Medicine
DX: T84.54XA Infection and inflammatory reaction due to internal left knee prosthesis, initial encounter (principal); J96.01 Acute respiratory failure with hypoxia; I47.2 Ventricular tachycardia; I50.42 Chronic combined systolic (congestive) and diastolic (congestive) heart failure; G89.29 Other chronic pain; K21.9 Gastro-esophageal reflux disease without esophagitis; D50.9 Iron deficiency anemia, unspecified; E03.9 Hypothyroidism, unspecified; E11.9 Type 2 diabetes mellitus without complications; G90.1 Familial dysautonomia [Riley-Day]; I48.91 Unspecified atrial fibrillation; Z66 Do not resuscitate; Y83.1 Surgical operation with implant of artificial internal device as the cause of abnormal reaction of the patient, or of later complication, without mention of misadventure at the time of the procedure; M19.90 Unspecified osteoarthritis, unspecified site; J44.9 Chronic obstructive pulmonary disease, unspecified; I95.1 Orthostatic hypotension; Z88.0 Allergy status to penicillin; Z88.8 Allergy status to other drugs, medicaments and biological substances; Z95.0 Presence of cardiac pacemaker; Z90.710 Acquired absence of both cervix and uterus; Z87.891 Personal history of nicotine dependence; Z86.79 Personal history of other diseases of the circulatory system; Z86.711 Personal history of pulmonary embolism; Z82.5 Family history of asthma and other chronic lower respiratory diseases; Z79.891 Long term (current) use of opiate analgesic
CPT/HCPCS: 36415; 71045; 71275; 78452; 80048; 80053; 84484; 85025; 85651; 86140; 87040; 93005; 93017; 93306; 94640; 99285; G0378; J1644; J2405; J2785; J7626; Q0162; Q9967; A9502